=== PATIENT | male | born 1945 | race Caucasian/White ===

== ENCOUNTER 2019-10-13 08:44 | Inpatient (IN) | payer MEDICARE, OTHER, SELFPAY ==
[2019-10-13] VITALS (18 sets, daily range): BP systolic 138–187; BP diastolic 61–101; PULSE 75–100; RESP 16–20; TEMP 36.1–36.9; O2SAT 88–97; BMI 27.4
--- NOTE | ~2019-10-13 | CT_ITS ---
EXAMINATION: CTA chest PE protocol DATE: 10/13/2019 10:25 INDICATION: Shortness of breath. Leg swelling. TECHNIQUE: Computed tomography angiography (CTA) of the chest was performed with 100 mL Omnipaque-350 intravenous contrast timed to evaluate the pulmonary arteries. Coronal maximum intensity projection 3D-reconstructions were created by the technologist. Automated exposure control and iterative reconst ruction technique were employed. Exam dose: 387.79 mGy-cm total exam DLP. COMPARISON: 10/12/2021 view chest FINDINGS: There is diagnostic contrast enhancement of the pulmonary arteries and no evidence of pulmo nary embolism. There is atherosclerotic calcification of the thoracic aorta, coronary and great vessels. No thoracic aortic aneurysm or dissection. Heart size is within normal range. No pericardial or pleural effusion. No hilar or mediastinal mass lesion or lymphadenopathy. No adrenal mass lesion. Included upper abdominal structures are unremarkable other than some postoper ative change of the stomach. Diffuse idiopathic skeletal hyperostosis of the thoracic spine. Prominent emphysematous changes are noted. There is asymmetric mild patchy groundglass infiltrate in the left upper lobe, which may be due to sm all airways disease or minimal interstitial pneumonitis versus interstitial fibrotic change. Lesser p redominantly peripheral interstitial likely chronic changes are noted bilaterally. No pulmonary conso lidation. No pulmonary mass lesion is evident. IMPRESSION: No evidence of pulmonary embolism Emphysema Asymmetric mild groundglass infiltrate in the left upper lobe which may be due to small airways disea se, mild interstitial pneumonitis or asymmetric chronic interstitial fibrotic change; recommend clini james correlation Reviewed, dictated and finalized at [facility]. Reviewed, dictated and finalized at location [facility]. IMPRESSION: No evidence of pulmonary embolism Emphysema Asymmetric mild groundglass infiltrate in the left upper lobe which may be due to small airways disease, mild interstitial pneumonitis or asymmetric chronic i nterstitial fibrotic change; recommend clinical correlation
--- NOTE | ~2019-10-13 | XR_ITS ---
EXAMINATION: XR chest 1V portable EXAM DATE: 10/15/2019 10:08 INDICATION: Aspiration. Airspace disease. TECHNIQUE: Portable AP frontal chest x-ray was obtained. Comparison is made to prior examination from 10/13/2019. FINDINGS: Development of congestive changes, pulmonary vascular congestion. No confluent consolidatio n, pneumothorax or pleural effusion suspected. Cardiomediastinal silhouette is normal. There is no pn eumothorax suspected. There are no pleural effusions. There are mild bony degenerative changes. IMPRESSION: Development of pulmonary vascular congestion. Reviewed, dictated and finalized at location [facility].
--- NOTE | ~2019-10-13 | US_ITS ---
EXAMINATION: US venous doppler LE EXAM DATE: 10/13/2019 15:27 INDICATION: Bilateral leg edema. Respiratory problem. TECHNIQUE: Multiple grayscale, color flow and Doppler images of the lower extremity deep venous syste ms bilaterally were obtained and reviewed. There is no prior study for comparison. FINDINGS: Right side: The right common femoral, femoral and profunda veins demonstrate normal color flow, respi ratory variation, augmentation and compressibility. Compressibility, color flow confirmed within the right popliteal, posterior tibial, peroneal, and greater saphenous veins. Left side: The left common femoral, femoral and profunda veins demonstrate normal color flow, respira tory variation, augmentation and compressibility. Compressibility, color flow confirmed within the l eft popliteal, posterior tibial, peroneal, and greater saphenous veins. IMPRESSION: 1. No lower extremity deep venous thrombosis bilaterally. Reviewed, dictated and finalized at location A.
--- NOTE | ~2019-10-13 | XR_ITS ---
XR chest 2V DATE: 10/13/2019 09:06 INDICATION: Shortness of breath with exertion TECHNIQUE: PA and lateral views COMPARISON: 01/06/2017 two-view chest FINDINGS: There is bilateral hyperinflation suggesting chronic obstructive pulmonary disease. There is subtle ill-defined increased density overlying the left mid lung; left lung groundglass infi ltrate is not excluded. If further evaluation is indicated, consider CT thorax. No pleural effusion or pulmonary vascular congestion or pneumothorax. Cardiomegaly. Aortic calcification. Osteopenia. Degenerative spurring of the thoracic spine. Mild thoracolumbar dextroscoliosis. IMPRESSION: Cannot exclude groundglass infiltrate, left midlung. If more definitive evaluation is req uired, consider CT thorax. Bilateral hyperinflation suggesting COPD Cardiac megaly Aortic calcification Reviewed, dictated and finalized at location A. IMPRESSION: Cannot exclude groundglass infiltrate, left midlung. If more defini tive evaluation is required, consider CT thorax. Bilateral hyperinflation suggesting COPD Cardiac megaly Aortic calcification
--- NOTE | ~2019-10-13 | XR_ITS ---
EXAMINATION: XR chest 2V EXAM DATE: 10/16/2019 08:22 INDICATION: Aspiration. TECHNIQUE: Portable AP frontal chest x-ray was obtained. Comparison is made to prior examination from 10/15/2019. FINDINGS: There is worsening reticulation mostly on the left side in the mid and lower lung zones, co uld be worsening pneumonia or edema. No pneumothorax or pleural effusion. Cardiomediastinal silhouett e is normal. There are no osseous abnormalities identified. There is aortic arterial sclerosis. IMPRESSION: Worsening left mid lower lung zone reticulation, progression of pneumonia or edema. Reviewed, dictated and finalized at location B. IMPRESSION: Worsening left mid lower lung zone reticulation, progression of pne umonia or edema.
--- NOTE | 2019-10-13 08:49 | ECG_ITS ---
Measurements Intervals [place] Rate: 89 P: 78 NM: 134 QRS: 42 QRSD: 94 T: 32 QT: 373 QTc: 455 Interpretive Statements SINUS RHYTHM NORMAL ECG Electronically Signed On 10-13-2019 16:31:49 CDT by Vic Melendrez D.O.
--- NOTE | 2019-10-13 09:01 | ED.SOB ---
HPI - SOB/Dyspnea General Chief Complaint: Shortness of Breath/Dyspnea Stated Complaint: sob Time Seen by Provider: 10/13/19 09:01 Source: patient Mode of arrival: ambulatory Limitations: no limitations History of Present Illness HPI Narrative: A 74 y/o male, with a PMHx of COPD, presents to the ED with c/o increased SOB for a couple weeks. Pt states that he has been more SOB when going up and down stairs and when laying down to go to sleep. He reports BLE edema, but denies CP, a cough, congestion, fever, chills, and a PMHx of CHF. Pertinent past history: COPD Onset (ago): week(s) (couple) Associated symptoms: other (BLE edema) Related Data Home Medications Medication Instructions Recorded Confirmed aspirin 81 mg tablet,delayed 81 mg PO DAILY 06/20/19 release esomeprazole magnesium 20 mg 20 mg PO DAILY 06/20/19 capsule,delayed release calcium carbonate-vitamin D3 1 tablet PO DAILY 10/13/19 10/13/19 [Caltrate 600 plus D] doxazosin 4 mg PO DAILY 10/13/19 Allergies Allergy/AdvReac Type Severity Reaction Status Date / Time No Known Allergies Allergy Verified 10/13/19 08:51 Review of Systems Review of Systems: All systems reviewed & are unremarkable except as noted in HPI and below Constitutional: Constitutional: Denies chills and Denies fever(s) ENT: Comments: Denies: congestion Cardiovascular: Cardiovascular: Denies chest pain and Reports other (BLE edema) Respiratory: Respiratory: Denies cough and Reports dyspnea PMF Past Medical History Medical History (Updated 10/13/19 @ 15:37 by Carlos Barajas MD) Benign prostatic hyperplasia Bladder cancer Status post TURBT in 2015. Chronic back pain For which he takes gabapentin. COPD (chronic obstructive pulmonary disease) Former smoker 1.5 packs per day for 40 years, quit in 2006. GERD (gastroesophageal reflux disease) Osteoarthritis Peptic ulcer 1995. Prostate cancer Status post radiation in 2015. Surgical History Surgical History (Updated 10/13/19 @ 14:45 by Korin Osei PA-C) History of arthroscopic knee surgery History of bladder surgery TURBT in 2015. History of laparotomy Related to what sounds like peptic or duodenal ulcer, and 1995. Social History Social History (Updated 10/13/19 @ 14:46 by Korin Osei PA-C) Social History: The patient is and lives with his in [place]. 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 He designates his , Hannah, as his surrogate decision maker and he wishes to be a full code. He smokes 1.5 packs of cigarettes per day for about 45 years, and quit in 2006. He denies alcohol and drug abuse. Smoking packs per day: 1.5 Smoking cigarettes per day: 30.0 Years smoked: 45 Smoking pack-years: 67.50 Smoking end date: 02/23/07 Spiritual care concerns: No Agree to blood products: Yes Comments PCP: Dr. Miner Exam Narrative: Exam Narrative: Constitutional: elderly, mildly ill appearing, no acute distress, well nourished HENMT: lip normal, MM moist Eyes: conjunctiva normal, PERRL Respiratory: clear to auscultation bilaterally, diminished breath sounds bilaterally Cardiovascular: RRR, no murmur, 2+ pitting edema to BLE GI: soft, non-tender, normal bowel sounds Back/Spine/Pelvis: Full ROM Skin: normal color, dry skin, warm Neurological: A&Ox3, normal speech Extremities: full ROM Psych: mental status grossly normal, normal affect Course Consultations Consultation #1: Discussed case with Dr. Bae and accepted admission. Date: 10/13/19 Time: 10:48 Vital Signs Vital signs: Vital Signs Temperature 36.3 C L 10/13/19 08:48 Pulse Rate 100 10/13/19 08:48 Respiratory Rate 18 10/13/19 08:48 Blood Pressure 138/72 10/13/19 08:48 Pulse Oximetry 88 L 10/13/19 08:48 Temperature 36.9 C 10/13/19 14:51 Pulse Rate 90 10/13/19 14:51 Respiratory Rate 17 10/13/19 14:51 Blood Pressure 182/92 H 10/13/19 14:51 Pulse Oximetry 94 04
[2019-10-13 09:09] LABS: Basophils Absolute Auto 0.1 K/mm3 (0.0-0.1); Basophils Percent Auto 1.5 % (0.2-1.2); Eosinophils Absolute Auto 0.2 K/mm3 (0-0.3); Hematocrit 24.6 % (42.0-52.0); Immature Granulocyte Absolute 0.01 K/mm3 (0.00-0.031); Immature Granulocyte Percent A 0.3 % (0-0.5); Lymphocytes Absolute Auto 0.45 K/mm3 (0.9-3.2); Lymphocytes Percent Auto 11.3 % (18.3-44.2); Mean Corpuscular HGB Conc 24.4 g/dl (32-36); Mean Corpuscular Hemoglobin 15.4 pg (26-34); Mean Corpuscular Volume 63.2 fl (80-100); Monocytes Absolute Auto 0.4 K/mm3 (0.1-0.6); Neutrophils Absolute Auto 2.9 K/mm3 (1.3-6.7); Neutrophils Percent Auto 73.9 % (45.5-73.1); Platelet Count Result 195 k/mm3 (150-375); Red Blood Count 3.89 M/mm3 (4.6-6.20); Red Cell Distribution Width 21.2 % (11.5-14.5)
[2019-10-13 09:18] LABS: Platelet Estimate Adequate (Adequate)
[2019-10-13 09:19] LABS: Blood Urea Nitrogen 17 mg/dL (9-20); Calcium 8.8 mg/dL (8.4-10.2); Carbon Dioxide 26 mmol/L (22-30); Chloride 105 mmol/L (98-107); Estimated CRCL calculation 55 ml/min; Estimated Glomerular Filt Rate > 60; Glucose 94 mg/dL (75-110); Hypochromasia 2+ (NORMAL); Ovalocytes 1+ (NORMAL); Poikilocytosis 1+ (NORMAL); Sodium 138 mmol/L (137-145)
[2019-10-13 09:30] LABS: INR 1.1; Prothrombin Time 13.5 Seconds (11.1-14.7)
[2019-10-13 09:31] LABS: Partial Thromboplastin Time 28.1 SECONDS (22.3-36.8)
[2019-10-13 09:36] LABS: CRP 1.4 mg/dL (<1.0); Lactate Dehydrogenase 713 U/L (313-618)
[2019-10-13 09:45] LABS: NT Pro B Type Natriuretic Pept 1810 PG/ML (5-100); Troponin I < 0.012 ng/mL (0.000-0.034)
--- NOTE | 2019-10-13 09:48 | PC.NURSE ---
Blood consent obtained at this time.
--- NOTE | 2019-10-13 10:02 | PC.NURSE ---
Updated patients Jo at [phone] at this time.
[2019-10-13] MEDS: TUBING, BLOOD PLUM PUMP TUBING 1 EACH XX (10:44)
[2019-10-13] MEDS: SODIUM CHLORIDE 0.9% IV 250 ML 30 ML IV CONT (10:44)
[2019-10-13] MEDS: FUROSEMIDE INJ 40 MG/4 ML VIAL IV PUSH (11:52)
--- NOTE | 2019-10-13 12:10 | ADMGEN ---
This patient, Joe Mead, was admitted to Medical Room 243-. Patient/family oriented to hospital policies and general routines including ID bracelet, bed and alarms, visiting hours, pain management, procedures, bathroom and other care routines, personal items, smoking policy, room service/diet, and visiting hours. Valuables list has been completed. Information on how to activate the Rapid Response Team has been discussed. Patient/Family are encouraged to report perceived risks to care and to ask questions if they do not understand what they are told or what they should do.
--- NOTE | 2019-10-13 13:50 | PM.IMHP ---
H&P: HPI History of Present Illness Chief complaint: Shortness of breath. Narrative: Joe Mead is a very pleasant 74-year-old male with COPD, GERD with history of peptic ulcer, and history of both prostate and bladder cancer who presented to the emergency department earlier this morning via private vehicle from home for evaluation of shortness of breath. He has mild, chronic dyspnea on exertion, mainly when walking up flights of steps, which has been much worse over the past couple of days. Additionally, he reports bilateral lower extremity edema, mild orthopnea, and dizziness upon standing. He was found to be profoundly anemic on labs drawn upon arrival, with a hemoglobin and hematocrit of 6.0 and 24.6% respectively. MCV was noted to be 63.2. ?I have been told my whole life that I would have always been a little bit anemic.? A colonoscopy done in December [address] Williamson revealed colon polyps, proctitis, internal hemorrhoids, and diverticulosis. The patient denies melena and hematochezia. He does take esomeprazole daily, which keeps his GERD symptoms at bay. Due to low back pain, he will take an Aleve maybe 1 time per week. He does not drink alcohol in any significant amounts. He denies belching, abdominal, and epigastric discomfort. He has no history of coronary artery disease or congestive heart failure. No history of cardiac murmur to his knowledge. He denies exertional chest pain and pleuritic pain. No PND or history of sleep apnea. He denies cough and wheeze. Review of Systems Review of Systems: Narrative: Twelve systems were reviewed with pertinent positives and negatives as per HPI. No fever, chills, or sweats. He denies cold and flu symptoms. No cough or wheezing. He denies dysphagia and concerns for aspiration. No epistaxis, hematemesis, or hematuria. No history of venous thromboembolism. Denies recent travel. Except as documented, all other systems were reviewed and are negative. [facility] Past Medical History Medical History (Updated 10/13/19 @ 14:48 by Korin Osei PA-C) Benign prostatic hyperplasia Bladder cancer Status post TURBT in 2015. Chronic back pain For which he takes gabapentin. COPD (chronic obstructive pulmonary disease) Former smoker 1.5 packs per day for 40 years, quit in 2006. GERD (gastroesophageal reflux disease) Osteoarthritis Peptic ulcer 1995. Prostate cancer Status post radiation in 2015. Surgical History Surgical History (Updated 10/13/19 @ 14:45 by Korin Osei PA-C) History of arthroscopic knee surgery History of bladder surgery TURBT in 2015. History of laparotomy Related to what sounds like peptic or duodenal ulcer, and 1995. Family History Family History Mother History of blood clots Leukemia Sibling Prostate carcinoma Social History Social History (Updated 10/13/19 @ 14:46 by Korin Osei PA-C) Social History: The patient is and lives with his in [place]. 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 He designates his , Hannah, as his surrogate decision maker and he wishes to be a full code. He smokes 1.5 packs of cigarettes per day for about 45 years, and quit in 2006. He denies alcohol and drug abuse. Smoking packs per day: 1.5 Smoking cigarettes per day: 30.0 Years smoked: 45 Smoking pack-years: 67.50 Smoking end date: 02/23/07 Spiritual care concerns: No Agree to blood products: Yes Meds Home Medications and Allergies Home Medications Medication Instructions Recorded Confirmed Type aspirin 81 mg tablet,delayed 81 mg PO DAILY 06/20/19 History release esomeprazole magnesium 20 mg 20 mg PO DAILY 06/20/19 History capsule,delayed release tiotropium bromide 2.5 2 puff INHALATION DAILY #1 device 10/01/19 Rx mcg/actuation mist for inhalation calcium carbonate-vitamin D3 1 tablet PO DAILY 10/13/19 10/13/19 History [Caltrate 600 plus
[2019-10-13 15:05] LABS: Iron 34 ug/dL (49-181)
[2019-10-13 15:23] LABS: Percent Iron Saturation 8 % (20-50)
[2019-10-13 15:35] LABS: Ferritin 4.65 ng/mL (11.1-264)
[2019-10-13] MEDS: FUROSEMIDE INJ 40 MG/4 ML VIAL 20 MG IV PUSH (18:26)
[2019-10-13 20:12] LABS: Hematocrit 30.6 % (42.0-52.0); Hemoglobin 8.2 g/dL (14.0-18.0)
[2019-10-14] VITALS (10 sets, daily range): BP systolic 139–176; BP diastolic 81–90; PULSE 72–111; RESP 16–18; TEMP 36.1–36.5; O2SAT 90–96
[2019-10-14 01:34] LABS: IFOB Positive Control Positive; Immunochemical Fecal Occult Bl Positive (N)
[2019-10-14 05:23] LABS: Alanine Aminotransferase 34 U/L (4-50); Alkaline Phosphatase 175 U/L (38-126); Aspartate Amino Transferase 34 U/L (17-59); Bilirubin,Total 0.9 mg/dL (0.2-1.3); Blood Urea Nitrogen 15 mg/dL (9-20); Calcium 9.2 mg/dL (8.4-10.2); Carbon Dioxide 32 mmol/L (22-30); Chloride 100 mmol/L (98-107); Estimated CRCL calculation 47 ml/min; Estimated Glomerular Filt Rate 59; Glucose 93 mg/dL (75-110); Magnesium 1.9 mg/dL (1.6-2.3); Potassium 3.2 mmol/L (3.4-5.0); Sodium 138 mmol/L (137-145)
[2019-10-14 08:14] LABS: Hematocrit 32.4 % (42.0-52.0); Hemoglobin 8.8 g/dL (14.0-18.0); Immature Platelet Fraction Pct 4.7 % (0.9-11.2); Mean Corpuscular HGB Conc 27.2 g/dl (32-36); Mean Corpuscular Hemoglobin 18.1 pg (26-34); Mean Corpuscular Volume 66.7 fl (80-100); Mean Platelet Volume 9.4 fl (7.4-10.4); Platelet Count Result 216 k/mm3 (150-375); Red Blood Count 4.86 M/mm3 (4.6-6.20); Red Cell Distribution Width 25.8 % (11.5-14.5); White Blood Count 4.9 K/mm3 (4.5-10.0)
[2019-10-14] MEDS: POTASSIUM CHLORIDE 20 MEQ PACKET (FOR LIQUID) 40 MEQ PO (08:43)
[2019-10-14] MEDS: PANTOPRAZOLE 40 MG TABLET PO ×2 (08:43→21:14)
[2019-10-14] MEDS: DOXAZOSIN MESYLATE 4 MG TABLET PO (08:44)
--- NOTE | 2019-10-14 09:58 | PM.IMPN ---
Progress Note: A&P Assessment and Plan (1) Microcytic anemia: Code(s): D50.9 - Iron deficiency anemia, unspecified Status: Acute Assessment and Plan: Chronic GI blood loss DDx includes PUD, UGI neoplasm, small bowel neoplasm, angiodysplasia of UGI stomach or small bowel, worsened proctitis 10/13 Hbg 6.0, 2 U PRBC --> 8.2 GI consult f/u h/h (2) Elevated blood pressure reading: Code(s): R03.0 - Elevated blood-pressure reading, without diagnosis of hypertension Status: Acute Assessment and Plan: 10/13 Improved with diuresis to 139/81 4 D/c furosemide Monitor volume status (3) Cardiac murmur: Code(s): R01.1 - Cardiac murmur, unspecified Status: Acute Assessment and Plan: Was likely due to high flow state caused by anemia (4) GERD (gastroesophageal reflux disease): Qualifiers: Esophagitis presence: esophagitis presence not specified Qualified Code(s): K21.9 - Gastro-esophageal reflux disease without esophagitis Code(s): K21.9 - Gastro-esophageal reflux disease without esophagitis Status: Acute Assessment and Plan: He has a remote history of peptic ulcers requiring surgical intervention in 1995. No active complaints Continue PPI BID (5) COPD (chronic obstructive pulmonary disease): Qualifiers: COPD type: unspecified COPD Qualified Code(s): J44.9 - Chronic obstructive pulmonary disease, unspecified Code(s): J44.9 - Chronic obstructive pulmonary disease, unspecified Status: Acute Assessment and Plan: No acute issues. Continue maintenance inhalers. Subjective Date/time seen: 10/14/19 09:58 Interval history: 74-year-old gentleman with history of peptic ulcer disease and radiation proctitis was admitted with dyspnea on 10/12. Also had edema and orthopnea. Treated with IV Lasix. Given 2 units of packed cells for hemoglobin of 6. Denied gastrointestinal symptoms except chronic heartburn controlled on omeprazole. No change in stools. / swelling in legs more much less. Able to lie flat. No chest pain or palpitations. No GI or complaints. Review of Systems Review of Systems: All systems reviewed & are unremarkable except as noted in HPI and below Exam Narrative: Exam Narrative: HEENT: EOMI, PERRL, pharyngeal mucosa pink and intact NECK: No JVD CHEST: Clear to auscultation. Normal effort. HEART: NL S1/S2, regular, no murmur ABDOMEN: BS+, soft, nontender, no mass, no bruits EXTREMITIES: trace ankle edema NEUROLOGIC: CN intact and symmetric to inspection. MUSCULOSKELETAL: Tone and strength symmetric. PSYCH: Alert. Oriented to person, place, and time. Objective Data Vital Signs Vital Signs: Vital Signs - 24 hr 10/13/19 10:39 10/13/19 10:47 10/13/19 10:56 Temperature 98 F 98.1 F Pulse Rate 89 90 86 Respiratory Rate 18 18 18 Blood Pressure 167/86 H 166/87 H 178/95 H Pulse Oximetry 94 93 92 10/13/19 11:47 10/13/19 11:56 10/13/19 12:56 Temperature 97.9 F 97.6 F Pulse Rate 89 99 87 Respiratory Rate 20 18 16 Blood Pressure 160/61 H 160/84 H 173/87 H Pulse Oximetry 95 95 95 10/13/19 13:36 10/13/19 13:51 10/13/19 14:51 Temperature 97.1 F L 97 F L 98.4 F Pulse Rate 85 90 90 Respiratory Rate 16 16 17 Blood Pressure 182/85 H 171/92 H 182/92 H Pulse Oximetry 97 93 94 10/13/19 15:51 10/13/19 16:00 10/13/19 16:51 Temperature 97.9 F 97.7 F Pulse Rate 80 75 94 Respiratory Rate 16 18 Blood Pressure 150/88 H 187/95 H Pulse Oximetry 89 L 92 10/13/19 18:10 10/13/19 20:00 10/13/19 21:40 Temperature 97.9 F 97.6 F Pulse Rate 92 88 94 Respiratory Rate 17 16 Blood Pressure 160/76 H 141/73 H Pulse Oximetry 93 94 10/14/19 00:00 10/14/19 01:34 10/14/19 04:00 Temperature 97.7 F Pulse Rate 85 72 95 Respiratory Rate 18 Blood Pressure 172/81 H Pulse Oximetry 93 10/14/19 05:46 Temperature 96.9 F L Pulse Rate 90 R
--- NOTE | 2019-10-14 11:25 | WPDGICN ---
Assessment and Plan Additional Plan Microcytic hyperchromic anemia secondary to chronic occult blood loss. Obviously this could be an upper GI tract, small bowel source or colonic source. Patient could have a marginal ulcer. Patient certainly may be bleeding from radiation proctitis as well. I discussed gastroscopy and colonoscopy with this patient he wanted received both tests. I think would be safer to perform this as an inpatient tomorrow. Even though the patient did have a colonoscopy year ago I am concerned that he may need radiation proctitis treated as well. If there is no significant source of blood loss then an outpatient small bowel video capsule endoscopy could be performed. I discussed the risks with the patient including further bleeding perforation possible need for emergency surgery and side effects from sedation. GI Consult Note Consult date/time: 10/14/19 11:25 HPI: Joe Mead is a 74 year old W male Who we are asked to see in GI consultation for evaluation of severe iron deficiency anemia. Hemoglobin was 6.0 gm's. no overt evidence of bleeding. Patient of heme-positive stool this disc occult chronic blood loss. Patient underwent a colonoscopy by Dr. Williamson in December of last year. He had several benign polyps which were removed. He was also found to have diverticulosis internal hemorrhoids and nonspecific proctitis which I suspect most likely is related to radiation proctitis. Pertinent past medical history includes partial gastrectomy approximately 1995 for peptic ulcer disease. Patient has not had an upper endoscopy since this time. Again he has no upper GI tract symptoms except for some chronic heartburn which is controlled with Prilosec. He denies any dysphagia anorexia nausea vomiting hematemesis melena or weight loss. He has had no change in bowel pattern. He denies any hematochezia. Patient also history of bladder cancer which was treated via cystoscopy. Also prostate cancer these are both in 2016 any did have radiation therapy For his prostate cancer. Patient also history of COPD and stop smoking approximately 12 years ago. Patient also with previous vasectomy. Patient had an incisional hernia repaired. He has a peripheral neuropathy for which she takes gabapentin. Patient presented emergency room because of increasing shortness of breath and some peripheral edema most likely is related to his severe anemia. Patient has had 2 units of packed cells his hemoglobin 8.8 this morning and is receiving his 3rd unit. [facility] Past Medical History Medical History (Updated 10/13/19 @ 15:37 by Carlos Barajas MD) Benign prostatic hyperplasia Bladder cancer Status post TURBT in 2015. Chronic back pain For which he takes gabapentin. COPD (chronic obstructive pulmonary disease) Former smoker 1.5 packs per day for 40 years, quit in 2006. GERD (gastroesophageal reflux disease) Osteoarthritis Peptic ulcer 1995. Prostate cancer Status post radiation in 2015. Surgical History Surgical History (Updated 10/13/19 @ 14:45 by Korin Osei PA-C) History of arthroscopic knee surgery History of bladder surgery TURBT in 2015. History of laparotomy Related to what sounds like peptic or duodenal ulcer, and 1995. Family History Family History Mother History of blood clots Leukemia Sibling Prostate carcinoma Social History Social History (Updated 10/13/19 @ 14:46 by Korin Osei PA-C) Social History: The patient is and lives with his in [place]. 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 He designates his , Hannah, as his surrogate decision maker and he wishes to be a full code. He smokes 1.5 packs of cigarettes per day for about 45 years, and quit in 2006. He denies alcohol and drug abuse. Smoking packs per day: 1.5 Smoking cigarettes per day: 30.0 Years smoked: 45 Smoking pack-years: 67.50 [place]gardo
[2019-10-14 13:03] LABS: Hemoglobin 9.2 g/dL (14.0-18.0)
[2019-10-14 13:14] LABS: Blood Urea Nitrogen 14 mg/dL (9-20); Calcium 9.1 mg/dL (8.4-10.2); Carbon Dioxide 29 mmol/L (22-30); Chloride 101 mmol/L (98-107); Estimated CRCL calculation 55 ml/min; Estimated Glomerular Filt Rate > 60; Glucose 92 mg/dL (75-110); Potassium 3.6 mmol/L (3.4-5.0); Sodium 138 mmol/L (137-145)
--- NOTE | 2019-10-14 14:54 | ECHO_ITS ---
Patient Info Name: Joe Mead Age: 74 years : 1945 Gender: Male Ht: 68 in Wt: 169 lbs BSA: 1.93 m2 HR: 90 bpm BP: 176 / 90 mmHg Heart Rhythm: Sinus Rhythm Technical Quality: Good Exam Date: 10/14/2019 9:22 AM Exam Location: [facility] Pulmonary Exam Room: 243 Patient Status: Inpatient Admit Date: 10/13/2019 Staff Ordering Physician: Korin Osei PA-C [employer] Manager: Alysia Adams RDCS Attending Provider: Scar Bae MD Referring Physician: Farnaz WHELAN; Exam Type: CA echo doppler color flow Study Info Indications - systolic murmur edema Complete two-dimensional, color flow and Doppler transthoracic echocardiogram is performed. Summary 1. Left ventricular chamber dimension is normal. 2. Left ventricular systolic function is normal, estimated at 60-65%. 3. The left ventricular diastolic function is grade I diastolic dysfunction. 4. E/e' 8 is minimally elevated. 5. Left atrial chamber dimension is moderately enlarged. 6. Right atrial chamber dimension is moderately enlarged. 7. There is mild aortic valve sclerosis. 8. The mitral valve has mildly thickened leaflets and mildly calcified annulus. 9. There is mild mitral valve regurgitation. 10. There is moderate tricuspid valve regurgitation. 11. Severe pulmonary hypertension, estimated pulmonary arterial systolic pressure is 82 mmHg. 12. Small atheroma in anterior and posterior aortic root. 13. Dilated inferior vena cava with >50% collapse upon inspiration consistent with elevated right atrial pressure, 10 mmHg. Left Ventricle E/e' 8 is minimally elevated. Left ventricular chamber dimension is normal. Left ventricular systolic function is normal, estimated at 60-65%. The left ventricular diastolic function is grade I diastolic dysfunction. Right Ventricle Moderator band which is normal variant. Right ventricular chamber dimension is normal. Right ventricular systolic function is normal. Left Atria Left atrial chamber dimension is moderately enlarged. Right Atria Right atrial chamber dimension is moderately enlarged. Aortic Valve The aortic valve is trileaflet. There is mild aortic valve sclerosis. There is no aortic valve stenosis. There is no aortic valve regurgitation. Pulmonic Valve There is no pulmonic regurgitation. Mitral Valve The mitral valve has mildly thickened leaflets and mildly calcified annulus. There is no mitral valve stenosis. There is mild mitral valve regurgitation. Tricuspid Valve There is moderate tricuspid valve regurgitation. Severe pulmonary hypertension, estimated pulmonary arterial systolic pressure is 82 mmHg. Pericardium/Pleural There is no pericardial effusion. Inferior Vena Cava Dilated inferior vena cava with >50% collapse upon inspiration consistent with elevated right atrial pressure, 10 mmHg. Aorta Small atheroma in anterior and posterior aortic root. The aortic root size at the sinus of Valsalva is normal. Left Ventricular Outflow Tract Name Value Normal LVOT 2D LVOT Diameter 2.0 cm LVOT Doppler LVOT Peak Gradient 6 mmHg
[2019-10-14] MEDS: polyethylene glycoL 3350 238 GM BOTTLE PO (15:05)
[2019-10-14] MEDS: MELATONIN 5 MG TABLET PO (21:14)
[2019-10-15] VITALS (24 sets, daily range): BP systolic 104–171; BP diastolic 57–95; PULSE 80–109; RESP 15–22; TEMP 36.2–37.3; O2SAT 88–96
[2019-10-15 05:21] LABS: Hematocrit 33.8 % (42.0-52.0); Hemoglobin 9.1 g/dL (14.0-18.0); Immature Platelet Fraction Pct 5.8 % (0.9-11.2); Mean Corpuscular HGB Conc 26.9 g/dl (32-36); Mean Corpuscular Hemoglobin 18.2 pg (26-34); Mean Corpuscular Volume 67.5 fl (80-100); Platelet Count Result 204 k/mm3 (150-375); Red Blood Count 5.01 M/mm3 (4.6-6.20); White Blood Count 4.7 K/mm3 (4.5-10.0)
[2019-10-15 05:36] LABS: Blood Urea Nitrogen 10 mg/dL (9-20); Calcium 9.2 mg/dL (8.4-10.2); Carbon Dioxide 29 mmol/L (22-30); Chloride 103 mmol/L (98-107); Estimated CRCL calculation 55 ml/min; Estimated Glomerular Filt Rate > 60; Glucose 91 mg/dL (75-110); Potassium 3.2 mmol/L (3.4-5.0); Sodium 140 mmol/L (137-145)
[2019-10-15] MEDS: LACTATED RINGERS 1,000 ML 150 ML IV CONT (08:18)
--- NOTE | 2019-10-15 08:22 | SUR.PREOP ---
0825 patient stating 91 on room air with no distress noted 02 applied at 2L nasal cannula
--- NOTE | 2019-10-15 08:39 | WPDANESEPPF ---
Anes - Initial Pre Proc Eval Procedure: Operation Date: 10/15/19 09:30 Proposed Procedures p Esophagogastroduodenoscopy & Colonoscopy - Dejan Williamson MD Date/Time: 10/15/19 08:39 Surgeon: Oscar Bae MD Pre Op Diagnosis: Shortness of breath. Patient Data Age: 74 Gender: M Height: 5 ft 8 in Weight: 82 kg Last Vital Signs Temp 37.0 C 10/15/19 08:20 Pulse 83 10/15/19 08:20 Resp 18 10/15/19 08:20 BP 171/86 H 10/15/19 08:20 Pulse Ox 91 10/15/19 08:20 Allergies Allergy/AdvReac Type Severity Reaction Status Date / Time No Known Allergies Allergy Verified 10/15/19 08:19 Home Medications Medication Instructions Recorded Confirmed Type aspirin 81 mg tablet,delayed 81 mg PO DAILY 06/20/19 10/13/19 History release esomeprazole magnesium 20 mg 20 mg PO DAILY 06/20/19 10/13/19 History capsule,delayed release tiotropium bromide 2.5 2 puff INHALATION DAILY #1 device 10/01/19 10/13/19 Rx mcg/actuation mist for inhalation calcium carbonate-vitamin D3 1 tablet PO DAILY 10/13/19 10/13/19 History [Caltrate 600 plus D] doxazosin 4 mg PO DAILY 10/13/19 10/13/19 History Laboratory Tests 10/14/19 10/14/19 10/15/19 12:26 12:26 04:48 WBC 4.7 K/mm3 K/mm3 (4.5-10.0) RBC 5.01 M/mm3 M/mm3 (4.6-6.20) Hgb 9.2 g/dL L g/dL 9.1 g/dL L g/dL (14.0-18.0) (14.0-18.0) Hct 34.0 % L % 33.8 % L % (42.0-52.0) (42.0-52.0) MCV 67.5 fl L fl (80-100) MCH 18.2 pg L pg (26-34) MCHC 26.9 g/dl L g/dl (32-36) RDW 26.0 % H % (11.5-14.5) Plt Count 204 k/mm3 k/mm3 (150-375) MPV TNP % Immature Plt Fraction 5.8 % % (0.9-11.2) Sodium 138 mmol/L mmol/L (137-145) Potassium 3.6 mmol/L mmol/L (3.4-5.0) Chloride 101 mmol/L mmol/L (98-107) Carbon Dioxide 29 mmol/L mmol/L (22-30) BUN 14 mg/dL mg/dL (9-20) Creatinine 1.00 mg/dL mg/dL (0.7-1.3) Estim Creat Clear Calc 55 ml/min ml/min Estimated GFR > 60 (59 - ) Glucose 92 mg/dL mg/dL (75-110) Calcium 9.1 mg/dL mg/dL (8.4-10.2) 10/15/19 04:48 WBC RBC Hgb Hct MCV MCH MCHC RDW Plt Count MPV % Immature Plt Fraction Sodium 140 mmol/L mmol/L (137-145) Potassium 3.2 mmol/L L mmol/L (3.4-5.0) Chloride 103 mmol/L mmol/L (98-107) Carbon Dioxide 29 mmol/L mmol/L (22-30) BUN 10 mg/dL mg/dL (9-20) Creatinine 1.00 mg/dL mg/dL (0.7-1.3) Estim Creat Clear Calc 55 ml/min ml/min Estimated GFR > 60 (59 - ) Glucose 91 mg/dL mg/dL (75-110) Calcium 9.2 mg/dL mg/dL (8.4-10.2) Patient hx anesthesia problems: none Family hx anesthesia problems: none [facility] Past Medical History Medical History Benign prostatic hyperplasia Bladder cancer Status post TURBT in 2016. Chronic back pain For which he takes gabapentin. COPD (chronic obstructive pulmonary disease) Former smoker 1.5 packs per day for 40 years, quit in 2006. GERD (gastroesophageal reflux disease) Osteoarthritis Peptic ulcer 1995. Prostate cancer Status post radiation in 2016. Surgical History Surgical History History of arthroscopic knee surgery History of bladder surgery TURBT in 2016. History of laparotomy Related to what sounds like peptic or duodenal ulcer, and 1995. Family History Family History Mother History of blood clots Leukemia Sibling Prostate carcinoma Social History Social History Social History: The patient is and lives with his in [place]. He is a retired milk ma
--- NOTE | 2019-10-15 10:08 | SUR.PHASEII ---
0950 PATIENT RESTLESS IN BED, O2 STATS IN THE 80'S WITH NASAL CANNULA. CHELSI SERRANO LINE ERECTOR AT BEDSIDE, MASK AT O2 10 L APPLIED, PATIENT COUGHING, DIMINISHED BREATH SOUNDS. x-RAY CALLED FOR PORTABLE CHEST X-RAY, DR. HUERTAS CALLED ORDERS RECIEVED FOR BREATHING TX AND INSENTIVE SPIROMETRY. RESPIRATORY CALLED FOR STAT BREATHING TREATMENT. 1001 X-RAY HER FOR PORTABLE, PATIENT COUGHING AND YANKAUER SUCTION GIVEN TO PATIENT TO SUCK UP SECRETIONS HE IS COUGHING UP. SECTRETIONS ARE YELLOW BILE LOOKING. HOB IS ELEVATED AT 60 DEGREES APPROXIMATLY ENCOURAGED PATIENT TO DEEP BREATH AND TRY AND COUGH SECTRETIONS UP.
[2019-10-15] MEDS: ALBUTEROL SULFATE NEB 2.5 MG/3 ML INH 1.25 MG INHALATION (10:20)
--- NOTE | 2019-10-15 10:36 | SUR.PHASEII ---
1025 BREATHING TREATMENT COMPLETED O2 SWITCHED OVER TO NASAL CANNULA AT 4 LITERS, POSTERIOR LUNGS SOUNDS REMAIN DIMISHED WITH EXPIRATORY WHEEZES NOTED IN THE LEFT LOWER LOBES, AND RIGHT MIDDLE AND UPPER LOBE. PATIENT CONTINUES TO COUGH AND USING YANKUAER SUCTION TO MOUTH HE COUGHS SECRETIONS UP. 1035 O2 STATS BACK IN THE MID 80'S MASK REAPPLIED WITH 8L OF O2, 1040 NOW STATING 92
--- NOTE | 2019-10-15 10:51 | SUR.PHASEII ---
1050 DR HUERTAS HERE TO SEE PATIENT. O2 ON NC AT 4 L , DR. HUERTAS STATED TO BRING PATIENT TO THE FLOOR PULSE OX AT 92%
--- NOTE | 2019-10-15 10:58 | SUR.PHASEII ---
1055 AWAITING TO GIVE REPORT TO FLOOR NURSE. PATIENT STATS DROPPED TO MID 80'S MASK REEAPPLIED AT 6 L. dR. HUERTAS CALLED. ORDERS RECIEVED TO BRING PATIENT TO THE FLOOR ON MASK WITH RESPIRATORY PRECAUTIONS.
[2019-10-15] MEDS: DOXAZOSIN MESYLATE 4 MG TABLET PO (11:41)
[2019-10-15] MEDS: PANTOPRAZOLE 40 MG TABLET PO ×2 (11:41→20:47)
[2019-10-15] MEDS: ALBUTEROL SULFATE NEB 2.5 MG/0.5 ML INH 5 MG INHALATION ×2 (12:47→20:01)
--- NOTE | 2019-10-15 14:29 | PM.IMPN ---
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 10/13 Hbg 6.0, 2 U PRBC --> 9.1 today 10/14 f/u h/h, and IV iron again today (2) Elevated blood pressure reading: Code(s): R03.0 - Elevated blood-pressure reading, without diagnosis of hypertension Status: Acute Assessment and Plan: 10/13 Improved with diuresis to 139/81 4 D/c furosemide May need long-term antihypertensive continue to monitor (3) Cardiac murmur: Code(s): R01.1 - Cardiac murmur, unspecified Status: Acute Assessment and Plan: Was likely due to high flow state caused by anemia, resolved (4) GERD (gastroesophageal reflux disease): Qualifiers: Esophagitis presence: esophagitis presence not specified Qualified Code(s): K21.9 - Gastro-esophageal reflux disease without esophagitis Code(s): K21.9 - Gastro-esophageal reflux disease without esophagitis Status: Acute Assessment and Plan: He has a remote history of peptic ulcers requiring surgical intervention in 1995. 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 Continue maintenance inhalers. (6) Acute respiratory failure with hypoxia: Code(s): J96.01 - Acute respiratory failure with hypoxia Status: Acute Assessment and Plan: Requiring O2 to keep sats in the 90s. Continue [facility] antibiotics and monitor (7) Pneumonia, aspiration: Code(s): J69.0 - Pneumonitis due to inhalation of food and vomit Status: Acute Assessment and Plan: Occurred in GI lab. Chest x-ray somewhat diffuse type infiltrates. Continue updrafts and started Zosyn. Repeat chest x-ray in a.m. Subjective Date/time seen: 10/15/19 14:29 Interval history: Date of visit 10/14. 74-year-old gentleman with history of peptic ulcer disease and radiation proctitis was admitted with dyspnea on 10/12. Also had edema and orthopnea. Treated with IV Lasix. Given 2 units of packed cells for hemoglobin of 6. Denied gastrointestinal symptoms except chronic heartburn controlled on omeprazole. No change in stools. No shortness of breath. No chest pain or palpitations. No GI or complaints. Had EGD and colon this a.m. and apparently some aspiration with EGD Exam Narrative: Exam Narrative: Blood pressure 152/84 pulse is 86 saturating 92% but on 4 L afebrile HEENT:, PERRL, NECK: No JVD CHEST: Clear to auscultation. Normal effort. HEART: NL S1/S2, regular, no murmur ABDOMEN: BS+, soft, nontender, no mass, EXTREMITIES: Edema has gone NEUROLOGIC: CN intact and symmetric to inspection. . PSYCH: Alert. Oriented to person, place, and time. Objective Data Vital Signs Vital Signs: Vital Signs - 24 hr 10/14/19 16:00 10/14/19 20:00 10/14/19 22:00 Temperature 36.4 C Pulse Rate 103 H 94 88 Respiratory Rate 18 Blood Pressure 158/87 H Pulse Oximetry 90 10/15/19 00:00 10/15/19 04:00 10/15/19 05:55 Temperature 36.2 C L Pulse Rate 97 109 H 96 Respiratory Rate 20 Blood Pressure 150/70 H Pulse Oximetry 90 10/15/19 08:00 10/15/19 08:20 10/15/19 10:00 Temperature 37.0 C Pulse Rate 99 83 80 Respiratory Rate 18 22 H Blood Pressure 171/86 H 136/91 H Pulse Oximetry 91 88 L 10/15/19 10:10 10/15/19 10:20 10/15/19 10:30
[2019-10-15] MEDS: MELATONIN 5 MG TABLET PO (20:47)
[2019-10-16] VITALS (20 sets, daily range): BP systolic 106–121; BP diastolic 54–61; PULSE 80–104; RESP 18–20; TEMP 36.5–37.7; O2SAT 93–99
[2019-10-16] MEDS: ALBUTEROL SULFATE NEB 2.5 MG/0.5 ML INH 5 MG INHALATION ×4 (02:35→20:03)
[2019-10-16 06:01] LABS: Basophils Absolute Auto 0.1 K/mm3 (0.0-0.1); Basophils Percent Auto 0.5 % (0.2-1.2); Eosinophils Absolute Auto 0.1 K/mm3 (0-0.3); Eosinophils Percent Auto 0.3 % (0-4.4); Hematocrit 29.4 % (42.0-52.0); Hemoglobin 7.9 g/dL (14.0-18.0); Immature Granulocyte Absolute 0.08 K/mm3 (0.00-0.031); Immature Granulocyte Percent A 0.5 % (0-0.5); Immature Platelet Fraction Pct 6.7 % (0.9-11.2); Lymphocytes Absolute Auto 0.47 K/mm3 (0.9-3.2); Mean Corpuscular HGB Conc 26.9 g/dl (32-36); Mean Corpuscular Hemoglobin 18.3 pg (26-34); Mean Corpuscular Volume 68.2 fl (80-100); Monocytes Absolute Auto 0.8 K/mm3 (0.1-0.6); Monocytes Percent Auto 5.2 % (2.6-8.5); Neutrophils Absolute Auto 13.9 K/mm3 (1.3-6.7); Neutrophils Percent Auto 90.5 % (45.5-73.1); Nucleated Red Blood Cells Perc 0.2 % (0.0-0.2); Platelet Count Result 180 k/mm3 (150-375); Red Blood Count 4.31 M/mm3 (4.6-6.20); Red Cell Distribution Width 26.7 % (11.5-14.5); White Blood Count 15.4 K/mm3 (4.5-10.0)
[2019-10-16 06:19] LABS: Blood Urea Nitrogen 11 mg/dL (9-20); Carbon Dioxide 29 mmol/L (22-30); Chloride 104 mmol/L (98-107); Estimated CRCL calculation 55 ml/min; Estimated Glomerular Filt Rate > 60; Glucose 112 mg/dL (75-110); Sodium 138 mmol/L (137-145)
[2019-10-16 06:32] LABS: Anisocytosis 1+ (NORMAL); Hypochromasia 1+ (NORMAL); Platelet Estimate Adequate (Adequate)
[2019-10-16] MEDS: DOXAZOSIN MESYLATE 4 MG TABLET PO (07:46)
[2019-10-16] MEDS: PANTOPRAZOLE 40 MG TABLET PO ×2 (07:46→20:38)
[2019-10-16] MEDS: POTASSIUM CHLORIDE 20 MEQ TABLET 40 MEQ PO ×3 (07:46→17:30)
--- NOTE | 2019-10-16 09:43 | WPDANESPN ---
Anes - Prog Note Post-Op Date/Time: 10/16/19 09:43 Cardiovascular status: normal Respiratory status: normal Airway patency: baseline Mental status: baseline Post-Op hydration status: normal Vital Signs: Last Vital Signs Temp 37.7 C H 10/16/19 05:59 Pulse 87 10/16/19 09:34 Resp 18 10/16/19 09:34 BP 106/61 10/16/19 05:59 Pulse Ox 94 10/16/19 09:28 I/O: Intake & Output 10/15/19 10/16/19 10/16/19 23:59 07:59 15:59 Intake Total 1140 440 360 Output Total 800 500 Balance 340 -60 360 Laboratory Tests 10/16/19 04:49 10/16/19 04:49 10/16/19 10/16/19 04:49 04:49 WBC 15.4 H RBC 4.31 L Hgb 7.9 L Hct 29.4 L MCV 68.2 L MCH 18.3 L MCHC 26.9 L RDW 26.7 H Plt Count 180 MPV TNP Immature Gran % (Auto) 0.5 Neut % (Auto) 90.5 H Lymph % (Auto) 3.0 L Crowley % (Auto) 5.2 Eos % (Auto) 0.3 Baso % (Auto) 0.5 Lymph # (Auto) 0.47 L Crowley # (Auto) 0.8 H Eos # (Auto) 0.1 Baso # (Auto) 0.1 Abs Immat Gran (auto) 0.08 H Absolute Neuts (auto) 13.9 H Absolute Nucleated RBC 0.0 Nucleated RBC % 0.2 Platelet Estimate Adequate % Immature Plt Fraction 6.7 Hypochromasia 1+ Anisocytosis 1+ Sodium 138 Potassium 3.0 L Chloride 104 Carbon Dioxide 29 BUN 11 Creatinine 1.00 Estim Creat Clear Calc 55 Estimated GFR > 60 Glucose 112 H Calcium 8.0 L Post-procedural complaints: none Patient Feedback: Patient satisfied with anesthetic care.
--- NOTE | 2019-10-16 11:58 | PM.IMPN ---
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 10/13 Hbg 6.0, 2 U PRBC -->7.6 today 10/15 f/u h/h, and IV iron again today(total of 900 mg) (2) Elevated blood pressure reading: Code(s): R03.0 - Elevated blood-pressure reading, without diagnosis of hypertension Status: Acute Assessment and Plan: 10/13 Improved with diuresis to 139/81 10/13 D/c furosemide Moniter bp (3) Cardiac murmur: Code(s): R01.1 - Cardiac murmur, unspecified Status: Acute Assessment and Plan: Was likely due to high flow state caused by anemia,, resolved (4) GERD (gastroesophageal reflux disease): Qualifiers: Esophagitis presence: esophagitis presence not specified Qualified Code(s): K21.9 - Gastro-esophageal reflux disease without esophagitis Code(s): K21.9 - Gastro-esophageal reflux disease without esophagitis Status: Acute Assessment and Plan: He has a remote history of peptic ulcers requiring surgical intervention in 1995. 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 Continue maintenance inhalers. (6) Acute respiratory failure with hypoxia: Code(s): J96.01 - Acute respiratory failure with hypoxia Status: Acute Assessment and Plan: Requiring O2 to keep sats in the 90s. Continue updrafts antibiotics and monitor secondary to pna , aspiration (7) Pneumonia, aspiration: Code(s): J69.0 - Pneumonitis due to inhalation of food and vomit Status: Acute Assessment and Plan: Occurred in GI lab. Chest x-ray somewhat diffuse type infiltrates 10/14 but definite LLL infiltrate today. Continue updrafts and D#2 of [place]. Subjective Date/time seen: 10/16/19 11:58 Interval history: Date of visit 10/15. 74-year-old gentleman with history of peptic ulcer disease and radiation proctitis was admitted with dyspnea on 10/12. Also had edema and orthopnea. Treated with IV Lasix. Given 2 units of packed cells for hemoglobin of 6. Denied gastrointestinal symptoms except chronic heartburn controlled on omeprazole. No change in stools. No shortness of breath. No chest pain or palpitations. No GI or complaints. Had EGD and colon 10/14. and some aspiration with EGD Exam Narrative: Exam Narrative: Blood pressure 106/60 pulse is 72 saturating 92% but on 4 L , temp 37.7 HEENT:, PERRL, NECK: No JVD CHEST: faint crackle L post base. . HEART: NL S1/S2, regular, no murmur ABDOMEN: BS+, soft, nontender, no mass, EXTREMITIES: no Edema NEUROLOGIC: no focal deficits. PSYCH: Alert. affect appropriate Objective Data Vital Signs Vital Signs: Vital Signs - 24 hr 10/15/19 12:25 10/15/19 12:47 10/15/19 12:55 Temperature Pulse Rate 83 Respiratory Rate 20 Blood Pressure Pulse Oximetry 96 93 10/15/19 13:00 10/15/19 14:00 10/15/19 15:51 Temperature 36.9 C Pulse Rate 86 108 H Respiratory Rate 20 18 18 Blood Pressure 104/58 L Pulse Oximetry 92 91 10/15/19 16:00 10/15/19 20:00 10/15/19 20:03 Temperature Pulse Rate 102 H 92 97 Respiratory Rate 20 20 Blood Pressure Pulse Oximetry 95 10/15/19 20:07 10/15/19 20:10 10/15/19 22:00 Temperature 37.3 C Pulse Rate 97 92 97 Respiratory Rate 20 20 20 Blood Pressure 114/57
[2019-10-16] MEDS: MELATONIN 5 MG TABLET PO (20:38)
[2019-10-17] VITALS (17 sets, daily range): BP systolic 117–153; BP diastolic 56–75; PULSE 81–104; RESP 16–20; TEMP 36.2–36.4; O2SAT 90–94
[2019-10-17] MEDS: ALBUTEROL SULFATE NEB 2.5 MG/0.5 ML INH 5 MG INHALATION ×4 (01:53→20:05)
[2019-10-17 05:13] LABS: Basophils Absolute Auto 0.1 K/mm3 (0.0-0.1); Basophils Percent Auto 0.6 % (0.2-1.2); Eosinophils Absolute Auto 0.4 K/mm3 (0-0.3); Eosinophils Percent Auto 4.5 % (0-4.4); Hematocrit 30.5 % (42.0-52.0); Immature Granulocyte Absolute 0.05 K/mm3 (0.00-0.031); Immature Granulocyte Percent A 0.6 % (0-0.5); Immature Platelet Fraction Pct 6.2 % (0.9-11.2); Lymphocytes Absolute Auto 0.47 K/mm3 (0.9-3.2); Lymphocytes Percent Auto 5.3 % (18.3-44.2); Mean Corpuscular HGB Conc 26.2 g/dl (32-36); Mean Corpuscular Hemoglobin 18.4 pg (26-34); Mean Corpuscular Volume 70.3 fl (80-100); Monocytes Absolute Auto 0.6 K/mm3 (0.1-0.6); Monocytes Percent Auto 6.5 % (2.6-8.5); Neutrophils Absolute Auto 7.3 K/mm3 (1.3-6.7); Neutrophils Percent Auto 82.5 % (45.5-73.1); Platelet Count Result 166 k/mm3 (150-375); Red Blood Count 4.34 M/mm3 (4.6-6.20); Red Cell Distribution Width 27.8 % (11.5-14.5); White Blood Count 8.9 K/mm3 (4.5-10.0)
[2019-10-17 05:23] LABS: Blood Urea Nitrogen 13 mg/dL (9-20); Calcium 8.6 mg/dL (8.4-10.2); Carbon Dioxide 29 mmol/L (22-30); Chloride 107 mmol/L (98-107); Estimated CRCL calculation 51 ml/min; Estimated Glomerular Filt Rate > 60; Glucose 97 mg/dL (75-110); Sodium 138 mmol/L (137-145)
[2019-10-17 06:27] LABS: Anisocytosis 2+ (NORMAL); Hypochromasia 1+ (NORMAL); Platelet Estimate Adequate (Adequate)
[2019-10-17] MEDS: DOXAZOSIN MESYLATE 4 MG TABLET PO (09:03)
[2019-10-17] MEDS: PANTOPRAZOLE 40 MG TABLET PO ×2 (09:03→20:40)
--- NOTE | 2019-10-17 14:11 | PM.IMPN ---
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 10/13 Hbg 6.0, 2 U PRBC -->8.0 today 10/16 f/u h/h, and IV iron again today(total of 1200 mg) (2) Elevated blood pressure reading: Code(s): R03.0 - Elevated blood-pressure reading, without diagnosis of hypertension Status: Acute Assessment and Plan: 10/13 Improved with diuresis to 139/81 10/13 D/c furosemide Moniter bp (3) Cardiac murmur: Code(s): R01.1 - Cardiac murmur, unspecified Status: Acute Assessment and Plan: Was likely due to high flow state caused by anemia,, resolved (4) GERD (gastroesophageal reflux disease): Qualifiers: Esophagitis presence: esophagitis presence not specified Qualified Code(s): K21.9 - Gastro-esophageal reflux disease without esophagitis Code(s): K21.9 - Gastro-esophageal reflux disease without esophagitis Status: Acute Assessment and Plan: He has a remote history of peptic ulcers requiring surgical intervention in 1995. 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 Continue maintenance inhalers. (6) Acute respiratory failure with hypoxia: Code(s): J96.01 - Acute respiratory failure with hypoxia Status: Acute Assessment and Plan: Requiring O2 to keep sats in the 90s but have been able to taper to 1L NC. Continue updrafts antibiotics and monitor secondary to pna , aspiration (7) Pneumonia, aspiration: Code(s): J69.0 - Pneumonitis due to inhalation of food and vomit Status: Acute Assessment and Plan: Occurred in GI lab. Chest x-ray somewhat diffuse type infiltrates 10/14 but definite LLL infiltrate 10/15. Continue updrafts and D#3 of Zosyn. Subjective Date/time seen: 10/17/19 14:11 Interval history: Date of visit 10/16. 74-year-old gentleman with history of peptic ulcer disease and radiation proctitis was admitted with dyspnea on 10/12. Also had edema and orthopnea. Treated with IV Lasix. Given 2 units of packed cells for hemoglobin of 6. Denied gastrointestinal symptoms except chronic heartburn controlled on omeprazole. No change in stools. No shortness of breath. No chest pain or palpitations. No GI or complaints. Had EGD and colon 10/14. and some aspiration with EGD and reflux changes on ED Exam Narrative: Exam Narrative: Blood pressure 118/60 pulse is 80 saturating 91% but on 1 L , afebrile HEENT:, PERRL, NECK: No JVD CHEST: clear . HEART: NL S1/S2, regular, no murmur ABDOMEN: BS+, soft, nontender, no mass, EXTREMITIES: no Edema NEUROLOGIC: no focal deficits. PSYCH: Alert. affect appropriate Objective Data Vital Signs Vital Signs: Vital Signs - 24 hr 10/16/19 16:00 10/16/19 20:00 10/16/19 20:04 Temperature Pulse Rate 95 90 92 Respiratory Rate 18 18 Blood Pressure Pulse Oximetry 93 10/16/19 20:06 10/16/19 20:10 10/16/19 22:00 Temperature 36.5 C Pulse Rate 90 99 Respiratory Rate 18 20 Blood Pressure 121/54 L Pulse Oximetry 93 95 10/17/19 00:00 10/17/19 01:54 10/17/19 02:00 Temperature Pulse Rate 88 91 92 Respiratory Rate 18 18 Blood Pressure Pulse Oximetry 10/17/19 04:00 10/17/19 05:51 10/17/19 08:00 Temperature 36.2 C L Pulse Rate 92 98 98 Respiratory Rat
[2019-10-17] MEDS: MELATONIN 5 MG TABLET PO (20:40)
[2019-10-18] VITALS (17 sets, daily range): BP systolic 98–139; BP diastolic 73–85; PULSE 71–101; RESP 18–20; TEMP 35.8–36.1; O2SAT 85–92
[2019-10-18] MEDS: ALBUTEROL SULFATE NEB 2.5 MG/0.5 ML INH 5 MG INHALATION ×3 (01:30→14:15)
[2019-10-18] MEDS: PANTOPRAZOLE 40 MG TABLET PO (08:18)
[2019-10-18] MEDS: DOXAZOSIN MESYLATE 4 MG TABLET PO (08:18)
--- NOTE | 2019-10-18 14:19 | HOMEO2EVAL ---
Home Oxygen Evaluation RC: Home Oxygen (O2) Evaluation Start: 10/18/19 10:04 Freq: ONCE Status: Active Protocol: RPE Activity Type Activity Date Activity User E-Sign Co-Sign Detail Recorded Client Recorded Date Recorded By Document 10/18/19 13:40 JOSE [email or web address] 10/18/19 14:19 JOSE Document 10/18/19 13:43 JOSE [email or web address] 10/18/19 14:19 JOSE Document 10/18/19 13:45 JOSE [email or web address] 10/18/19 14:19 JOSE Document 10/18/19 13:47 [email or web address] [email or web address] 10/18/19 14:19 JOSE Document 10/18/19 13:48 [email or web address] [email or web address] 10/18/19 14:19 JOSE Document 10/18/19 13:50 [email or web address] [email or web address] 10/18/19 14:19 JOSE Document 10/18/19 14:00 [email or web address] [email or web address] 10/18/19 14:19 JOSE 10/18/19 10/18/19 10/18/19 13:40 13:43 13:45 Home O2 Evaluation Test Phase Resting Resting Exercise Oxygen Delivery Room Air Nasal Cannula Nasal Cannula Oxygen Flow Rate (L/min) 1 1 Pulse Oximetry (90-100 %) 87 L 90 85 L Ambulation Distance (feet) Home Oxygen Evaluation Comments Treatment Charges O2 Evaluation 10/18/19 10/18/19 10/18/19 13:47 13:48 13:50 Home O2 Evaluation Test Phase Exercise Exercise Exercise Oxygen Delivery Nasal Cannula Nasal Cannula Nasal Cannula Oxygen Flow Rate (L/min) 2 3 4 Pulse Oximetry (90-100 %) 86 L 87 L 90 Ambulation Distance (feet) 400 Home Oxygen Evaluation Comments Treatment Charges 10/18/19 14:00 Home O2 Evaluation Test Phase Resting Oxygen Delivery Oxygen Flow Rate (L/min) 1 Pulse Oximetry (90-100 %) 92 Ambulation Distance (feet) Home Oxygen Evaluation Comments PT REQUIRES 1L AT REST AND 4L WITH ACTIVITY Treatment Charges
--- NOTE | 2019-10-18 17:15 | PM.DS ---
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 10/13 Hbg 6.0, 2 U PRBC -->8.0 10/16 f/u h/h 10/22 prior to return visit with primary , and IV iron (total of 1200 mg) while inpatient so no oral iron on d/c (2) GERD (gastroesophageal reflux disease): Qualifiers: Esophagitis presence: esophagitis presence not specified Qualified Code(s): K21.9 - Gastro-esophageal reflux disease without esophagitis Code(s): K21.9 - Gastro-esophageal reflux disease without esophagitis Status: Acute Assessment and Plan: He has a remote history of peptic ulcers requiring surgical intervention in 1995. 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 Continue maintenance inhaler spiriva. (4) Acute respiratory failure with hypoxia: Code(s): J96.01 - Acute respiratory failure with hypoxia Status: Acute Assessment and Plan: Requiring O2 to keep sats in the 90s but have been able to taper to 1L NC. Continue updrafts antibiotics and monitor secondary to pna , aspiration Home 02 will be initially 1L NC at rest and 4L with activity and should be short course (5) Pneumonia, aspiration: Code(s): J69.0 - Pneumonitis due to inhalation of food and vomit Status: Acute Assessment and Plan: Occurred in GI lab. Chest x-ray somewhat diffuse type infiltrates 10/14 but definite LLL infiltrate 10/15. Continue updrafts and #4 of Zosyn.and will complete 7 day course total with oral Augmentin 875 bid DS: Summary Hospital Course Hospital Course: 74-year-old white male admitted with shortness of breath found to have iron deficiency anemia. Had high output heart failure with the anemia which was corrected with transfusion and IV diuresis. Hemoglobin 6 after 2 units of packed cells is 8.0 date prior to discharge with no evidence of continued blood loss. Receive 1200 mg IV iron while here EGD and colon revealed Hernandez's esophagus with no dysplasia and diverticular disease but no area active bleeding Aspirated during GI procedure on the and treated with Zosyn with improvement but still slightly hypoxic at discharge requiring home O2. Will finish course of Augmentin for total of 7 day treatment Follow-up appoint will with Dr. Evangelista 10/23 and repeat CBC 10/22 Time Spent with Patient Time attestation: Total time spent providing and/or coordinating discharge services:35 minutes Exam Narrative: Exam Narrative: Condition on discharge Blood pressure 136/84 pulse 72 saturating 92% on 1 L nasal cannula Lungs are clear hear no consolidation CV regular rate rhythm Abdomen soft nontender Extremities without edema Alert taking a diet well with no complaints DS: Data Data Completed and Pending Completed studies during hospitalization: Pending at discharge 10/15/19 09:34 Surgical [PTH] Routine Discharge Plan Discharge Attending physician on discharge: Johny Nick Consulting providers: Dejan Williamson Discharging Clinician: Johny Nick Patient Disposition: Home, Self-Care Activity: as tolerated Diet: regular Discharge Instructions: home 02 1L at rest and 4L with activity per respiratory th
--- NOTE | 2019-10-18 17:26 | PC.NURSE ---
call respiratory multiple times to see when home 02 would be available, RT gave [employer] number to call. [employer] was unaware that patient was discharging and will call back with an ETA.
== END 2019-10-18 18:24 | disposition home or self-care (01) | DRG 380 ==
LOC: ANHED 11:04 → ANH2MED 14:41
PROVIDERS: Internal Medicine; Internal Medicine Gastroenterology; Physician Assistant; Admitting Provider Internal Medicine; Emergency Provider Emergency Medicine; PCP Family Medicine; Visit Provider Internal Medicine
PROC: 0DJ08ZZ Inspection of Upper Intestinal Tract, Via Natural or Artificial Opening Endoscopic (ICD-10-PCS; CPT 43235; principal; 2019-10-15 09:30)
DX: K22.70 Barrett's esophagus without dysplasia (principal); J96.01 Acute respiratory failure with hypoxia; J69.0 Pneumonitis due to inhalation of food and vomit; D50.0 Iron deficiency anemia secondary to blood loss (chronic); J44.9 Chronic obstructive pulmonary disease, unspecified; K21.9 Gastro-esophageal reflux disease without esophagitis; Z87.11 Personal history of peptic ulcer disease; Z85.46 Personal history of malignant neoplasm of prostate; K57.31 Diverticulosis of large intestine without perforation or abscess with bleeding; Z85.51 Personal history of malignant neoplasm of bladder; K64.8 Other hemorrhoids; K57.90 Diverticulosis of intestine, part unspecified, without perforation or abscess without bleeding; N40.0 Benign prostatic hyperplasia without lower urinary tract symptoms; Z90.6 Acquired absence of other parts of urinary tract; M19.90 Unspecified osteoarthritis, unspecified site; G89.29 Other chronic pain; M54.9 Dorsalgia, unspecified; Z87.891 Personal history of nicotine dependence; Z92.3 Personal history of irradiation; R03.0 Elevated blood-pressure reading, without diagnosis of hypertension; R01.1 Cardiac murmur, unspecified; Z86.010 Personal history of colon polyps; G62.9 Polyneuropathy, unspecified; I50.83 High output heart failure
CPT/HCPCS: 36415; 36430; 71045; 71046; 71275; 80048; 80053; 82274; 82607; 82728; 82746; 83540; 83550; 83605; 83615; 83735; 83880; 84100; 84443; 84484; 85014; 85018; 85025; 85027; 85055; 85610; 85730; 86140; 86850; 86900; 86901; 86923; 87804; 88305; 88313; 93005; 93306; 93970; 94618; 94640; 96374; 99285; A9270; J1756; J1940; J2543; J2704; J3480; J7050; J7120; P9016; Q9967

== ENCOUNTER 2020-04-20 09:14 | Outpatient (CLI) | payer MEDICARE, OTHER, SELFPAY ==
[2020-04-20 09:29] LABS: Basophils Absolute Auto 0.1 K/mm3 (0.0-0.1); Basophils Percent Auto 1.1 % (0.2-1.2); Eosinophils Absolute Auto 0.4 K/mm3 (0-0.3); Eosinophils Percent Auto 9.5 % (0-4.4); Hematocrit 40.8 % (42.0-52.0); Hemoglobin 13.7 g/dL (14.0-18.0); Immature Granulocyte Absolute 0.02 K/mm3 (0.00-0.031); Immature Granulocyte Percent A 0.4 % (0-0.5); Lymphocytes Absolute Auto 0.77 K/mm3 (0.9-3.2); Lymphocytes Percent Auto 16.7 % (18.3-44.2); Mean Corpuscular HGB Conc 33.6 g/dl (32-36); Mean Corpuscular Hemoglobin 29.7 pg (26-34); Mean Corpuscular Volume 88.5 fl (80-100); Mean Platelet Volume 9.5 fl (7.4-10.4); Monocytes Absolute Auto 0.5 K/mm3 (0.1-0.6); Monocytes Percent Auto 10.2 % (2.6-8.5); Neutrophils Absolute Auto 2.9 K/mm3 (1.3-6.7); Neutrophils Percent Auto 62.1 % (45.5-73.1); Platelet Count Result 156 k/mm3 (150-375); Red Blood Count 4.61 M/mm3 (4.6-6.20); Red Cell Distribution Width 13.1 % (11.5-14.5); White Blood Count 4.6 K/mm3 (4.5-10.0)
[2020-04-20 09:44] LABS: Anion Gap 7 mmol/L (8-16); Blood Urea Nitrogen 22 mg/dL (9-20); Calcium 9.7 mg/dL (8.4-10.2); Carbon Dioxide 30 mmol/L (22-30); Chloride 101 mmol/L (98-107); Estimated Glomerular Filt Rate > 60; Glucose 97 mg/dL (75-110); Potassium 4.6 mmol/L (3.4-5.0); Sodium 138 mmol/L (137-145)
== END 2020-04-20 09:15 | disposition home or self-care (01) ==
PROVIDERS: PCP Family Medicine; Visit Provider Family Medicine
DX: D50.9 Iron deficiency anemia, unspecified (principal)
CPT/HCPCS: 36415; 80048; 85025

== ENCOUNTER 2020-06-09 14:06 | Outpatient (CLI) | payer MEDICARE, OTHER, SELFPAY ==
[2020-06-09 14:20] VITALS: PULSE 70; O2SAT 93
[2020-06-09 14:23] VITALS: PULSE 96; O2SAT 85
[2020-06-09 14:25] VITALS: O2SAT 87
[2020-06-09 14:27] VITALS: O2SAT 91
[2020-06-09 14:35] VITALS: PULSE 72; O2SAT 93
--- NOTE | 2020-06-09 14:55 | HOMEO2EVAL ---
Home Oxygen Evaluation RC: Home Oxygen (O2) Evaluation Start: 06/09/20 14:52 Freq: Status: Active Protocol: RPE Activity Type Activity Date Activity User E-Sign Co-Sign Detail Recorded Client Recorded Date Recorded By Document 06/09/20 14:20 JOSE [email or web address] 06/09/20 14:55 JOSE Document 06/09/20 14:23 JOSE [email or web address] 06/09/20 14:55 JOSE Document 06/09/20 14:25 JOSE [email or web address] 06/09/20 14:55 JOSE Document 06/09/20 14:27 JOSE [email or web address] 06/09/20 14:55 JOSE Document 06/09/20 14:35 JOSE [email or web address] 06/09/20 14:55 JOSE 06/09/20 06/09/20 06/09/20 14:20 14:23 14:25 Home O2 Evaluation Test Phase Resting Exercise Exercise Oxygen Delivery Room Air Room Air Nasal Cannula Oxygen Flow Rate (L/min) 1 Pulse Oximetry (90-100 %) 93 85 L 87 L Pulse Rate (60-100 beats/min) 70 96 Ambulation Distance (feet) Home Oxygen Evaluation Comments Treatment Charges O2 Evaluation 06/09/20 06/09/20 14:27 14:35 Home O2 Evaluation Test Phase Exercise Resting Oxygen Delivery Nasal Cannula Room Air Oxygen Flow Rate (L/min) 2 Pulse Oximetry (90-100 %) 91 93 Pulse Rate (60-100 beats/min) 72 Ambulation Distance (feet) 600 Home Oxygen Evaluation Comments PT REQUIRES 2 LITERS O2 WITH EXERTION/ ACTIVITY Treatment Charges
--- NOTE | 2020-06-09 14:55 | PCRCNOTE ---
PT REQUIRES 2L HOME O2 WITH ACTIVITY. HOME O2 EVAL COMPLETED AND STEPHANIE SENT AMB. ORDER FOR HOME O2 EVAL RATHER THAN 6 MINUTE WALK
== END 2020-06-09 14:07 | disposition home or self-care (01) ==
PROVIDERS: PCP Family Medicine; Visit Provider Family Medicine
DX: J96.01 Acute respiratory failure with hypoxia (principal)
CPT/HCPCS: 94618

== ENCOUNTER 2020-06-18 11:26 | Inpatient (IN) | payer MEDICARE, OTHER, SELFPAY ==
[2020-06-18] VITALS (24 sets, daily range): BP systolic 100–155; BP diastolic 65–140; PULSE 90–126; RESP 18–28; TEMP 36.4–36.5; O2SAT 83–100; BMI 25.1
--- NOTE | ~2020-06-18 | XR_ITS ---
EXAMINATION: XR chest 2V DATE: 06/20/2020 14:55 INDICATION: Cough and pneumonia TECHNIQUE: PA and lateral views of the chest are obtained. COMPARISON: 06/18/2020 FINDINGS: Airspace opacities in the left mid and lower lung zone persist but have improved. There is no pleural effusion or pneumothorax. The cardiomediastinal silhouette is normal. There is moderate th oracic spondylosis. IMPRESSION: 1. Improved airspace opacities of the left mid and lower lung zones, consistent with pneumonia. Reviewed, dictated and finalized at location A. TER MECHANIC
--- NOTE | ~2020-06-18 | US_ITS ---
EXAMINATION: US venous doppler [facility] DATE: 06/19/2020 14:06 INDICATION: Shortness of breath. TECHNIQUE: Grayscale ultrasound images without and with compression and Doppler ultrasound images of the bilateral lower extremity veins were obtained. COMPARISON: Ultrasound 10/13/2019 FINDINGS: The visualized portions of right common femoral vein, profunda (deep) femoral vein, femoral vein, pop liteal vein, peroneal veins, posterior tibial veins, and greater saphenous vein outflow are patent. The visualized portions of left common femoral vein, profunda femoral vein, femoral vein, popliteal v ein, peroneal veins, posterior tibial veins, and greater saphenous vein outflow are patent. IMPRESSION: 1. No deep venous thrombosis. Reviewed, dictated and finalized at location B. BRATION ENGINEER
--- NOTE | ~2020-06-18 | XR_ITS ---
EXAMINATION: XR chest 2V DATE: 06/18/2020 12:24 INDICATION: Dyspnea. TECHNIQUE: Frontal and lateral views of the chest were obtained. COMPARISON: Chest 2 views/02/26, chest CT 10/13/2019 FINDINGS: There are lucencies and interstitial opacities in the lungs, consistent with emphysema. The re are airspace opacities in left mid and lower lung zones. No pleural effusion or pneumothorax. The heart size is normal. IMPRESSION: 1. Worsened airspace opacities in left mid and lower lung zones, consistent with pneumonia. 2. Severe emphysema. Reviewed, dictated and finalized at location B. ADJUSTER IMPRESSION: 1. Worsened airspace opacities in left mid and lower lung zones, consistent wit h pneumonia. 2. Severe emphysema.
--- NOTE | ~2020-06-18 | CT_ITS ---
EXAMINATION: CTA chest PE protocol DATE: 06/19/2020 15:37 INDICATION: Shortness of breath. Elevated d-dimer. TECHNIQUE: Computed tomography angiography (CTA) of the chest was performed with 100 mL Omnipaque-350 intravenous contrast timed to evaluate the pulmonary arteries. Coronal maximum intensity projection 3D-reconstructions were created by the technologist. Automated exposure control and iterative reconst ruction technique were employed. Exam dose: 426.98 mGy-cm total exam DLP. COMPARISON: 06/18/2020 PA and lateral chest FINDINGS: There is diagnostic contrast enhancement of the pulmonary arteries and no evidence of pulmo nary embolism. Severe emphysematous changes are noted. There is patchy infiltrate in the left upper and lower lobes, including some infiltrate or atelectasi s along the posterior segment of the upper lobe near the greater fissure. There is some focal probabl e infiltrates in the middle lobe. Mild bilateral dependent lower lobe atelectasis. No hilar or mediastinal mass lesion or lymphadenopathy. No thoracic aortic aneurysm or dissection. Normal heart size. 3 cm left renal cyst. Normal morphology of the adrenal glands. Advanced healing anterior right ninth rib fracture. No suspicious osteolytic or osteoblastic lesions. Degenerative changes of the lower cervical spine. Diffuse idiopathic skeletal hyperostosis of the tho racic spine. No suspicious osteolytic or osteoblastic lesions. IMPRESSION: Patchy bilateral infiltrates, left greater than right Severe emphysema No evidence of pulmonary embolism Reviewed, dictated and finalized at Location A. Reviewed, dictated and finalized at location A. RAL DIRECTOR/EMBALMER/OWNER
--- NOTE | ~2020-06-18 | XR_ITS ---
EXAMINATION: XR chest 1V portable DATE: 06/23/2020 12:48 INDICATION: Pneumonia. TECHNIQUE: A single frontal view of the chest was obtained. COMPARISON: Chest 2 views 06/20/2020, chest CT 06/19/2020 FINDINGS: There are lucencies in the lungs, consistent with emphysema. There are mild airspace opacit ies in the mid and lower lung zones. No pleural effusion or pneumothorax. The heart size is normal. IMPRESSION: 1. Stable mild airspace opacities in the mid and lower lung zones, consistent with atelectasis/scarri ng versus pneumonia. 2. Severe emphysema. Reviewed, dictated and finalized at location A. ES 9 12 TUTOR IMPRESSION: 1. Stable mild airspace opacities in the mid and lower lung zones, consistent w ith atelectasis/scarring versus pneumonia. 2. Severe emphysema.
--- NOTE | 2020-06-18 11:28 | ECG_ITS ---
Measurements Intervals [place] Rate: 114 P: 92 AR: 130 QRS: 83 QRSD: 84 T: 77 QT: 327 QTc: 451 Interpretive Statements SINUS TACHYCARDIA POSSIBLE LEFT ATRIAL ENLARGEMENT BORDERLINE ST-T WAVE ABNORMALITY- INF/LAT LEADS BASELINE ARTIFACT- I, II, III, AVR, AVL, AVF, V3-V6 ABNORMAL ECG Electronically Signed On 06-18-2020 11:40:31 SCOOPER by Vic Melendrez D.O.
[2020-06-18 11:51] LABS: Basophils Percent Auto 0.4 % (0.2-1.2); Eosinophils Percent Auto 0.3 % (0-4.4); Hematocrit 41.4 % (42.0-52.0); Hemoglobin 13.7 g/dL (14.0-18.0); Immature Granulocyte Absolute 0.03 K/mm3 (0.00-0.031); Immature Granulocyte Percent A 0.3 % (0-0.5); Lymphocytes Percent Auto 3.5 % (18.3-44.2); Mean Corpuscular HGB Conc 33.1 g/dl (32-36); Mean Corpuscular Hemoglobin 29.5 pg (26-34); Mean Corpuscular Volume 89.2 fl (80-100); Mean Platelet Volume 9.8 fl (7.4-10.4); Monocytes Absolute Auto 0.8 K/mm3 (0.1-0.6); Monocytes Percent Auto 6.6 % (2.6-8.5); Neutrophils Absolute Auto 10.2 K/mm3 (1.3-6.7); Neutrophils Percent Auto 88.9 % (45.5-73.1); Platelet Count Result 159 k/mm3 (150-375); Red Blood Count 4.64 M/mm3 (4.6-6.20); Red Cell Distribution Width 12.5 % (11.5-14.5); White Blood Count 11.4 K/mm3 (4.5-10.0)
[2020-06-18 12:01] LABS: Alveolar/Arterial O2 Gradient 71.7 mmHg; Base Excess ABG -2.3 mEq/l (+/-2.0); Carboxyhemoglobin 0.9 % THb (0-2.0); Device NASAL CANNULA; Fractional Inspired Oxygen 24 %; HCO3 ABG 22.2 mEq/l (22.0-26.0); Methemoglobin ABG 0.3 %THb (0-1.5); Modified Allen's Test Pass; Oxygen Content ABG 16.7 %vol (16.0-22.0); Oxygen Saturation ABG 88.8 % (95.0-100.0); Oxyhemoglobin 87.2 % THb (90.0-100.0); PCO2 ABG 37.1 mmHg (35.0-45.0); PO2 ABG 55.3 mmHg (80.0-100.0); Reduced Hemoglobin 11.6 %THb (0-5.0); Site Drawn LEFT RADIAL; Total Hemoglobin 13.6 g/dL (12.0-18.0); pH ABG 7.394 (7.350-7.450)
[2020-06-18 12:02] LABS: Anion Gap 2 mmol/L (8-16); Blood Urea Nitrogen 25 mg/dL (9-20); Calcium 9.5 mg/dL (8.4-10.2); Carbon Dioxide 28 mmol/L (22-30); Chloride 107 mmol/L (98-107); Estimated CRCL calculation 55 ml/min; Estimated Glomerular Filt Rate > 60; Glucose 123 mg/dL (75-110); Potassium 4.4 mmol/L (3.4-5.0); Sodium 137 mmol/L (137-145)
--- NOTE | 2020-06-18 12:05 | ED.SOB ---
HPI - SOB/Dyspnea General Chief Complaint: Shortness of Breath/Dyspnea Stated Complaint: SOB Time Seen by Provider: 06/18/20 12:05 Source: patient and EMS Mode of arrival: EMS Limitations: no limitations History of Present Illness HPI Narrative: Patient is a 75-year-old male with a history of CHF, COPD, chronically on 1 L of home oxygen who presents for evaluation of shortness of breath from his primary care physician's office. Patient was seen this morning, noted to be hypoxic with increased work of breathing, his oxygen via nasal cannula was increased to 4 L, EMS was called and patient was transferred to this facility. At the time of assessment, patient feels improved after he was given a DuoNeb treatment in route. He does have audible expiratory wheezing, oxygen saturation is 88% on 1 L, thus this was increased to 3 L with improvement. Patient is denying chest pain. He reports productive cough without hemoptysis. He denies fever, chills, myalgias, rhinorrhea. He denies lower leg swelling or pain. He denies chest pain. Patient is a former smoker, cessation over 13 years ago. Related Data Home Medications Medication Instructions Recorded Confirmed Caltrate 600 plus D 1 tablet PO DAILY 10/13/19 06/18/20 doxazosin 4 mg PO DAILY 10/13/19 06/18/20 Allergies Allergy/AdvReac Type Severity Reaction Status Date / Time No Known Allergies Allergy Verified 06/18/20 11:34 Review of Systems Review of Systems: Narrative: CONSTITUTIONAL: Denies fever ENT: Denies rhinorrhea, congestion, sore throat, or otalgia. CARDIOVASCULAR: Denies chest pain, palpitations, or edema. RESPIRATORY: Reports cough and shortness of breath GASTROINTESTINAL: Denies abdominal pain, nausea, vomiting, or diarrhea. GENITOURINARY: Denies dysuria or hematuria. SKIN: Denies rash or itching. MUSCULOSKELETAL: Denies back pain, joint pain, or myalgia. NEUROLOGIC: Denies headache, numbness, or weakness. [facility] Past Medical History Medical History Benign prostatic hyperplasia Bladder cancer Status post TURBT in 2016. BMI 25.0-25.9,adult Chronic back pain For which he takes gabapentin. COPD (chronic obstructive pulmonary disease) Dyspnea Former smoker 1.5 packs per day for 40 years, quit in 2006. GERD (gastroesophageal reflux disease) Osteoarthritis Peptic ulcer 1995. Prostate cancer Status post radiation in 2016. Surgical History Surgical History History of arthroscopic knee surgery History of bladder surgery TURBT in 2015. History of laparotomy Related to what sounds like peptic or duodenal ulcer, and 1995. Family History Family History Mother History of blood clots Leukemia Sibling Prostate carcinoma Social History Social History Social History: The patient is and lives with his in [place]. 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 He designates his , Hannah, as his surrogate decision maker and he wishes to be a full code. He smokes 1.5 packs of cigarettes per day for about 45 years, and quit in 2006. He denies alcohol and drug abuse. Smoking packs per day: 1.5 Smoking cigarettes per day: 30.0 Years smoked: 45 Smoking pack-years: 67.50 Smoking status: Former smoker Smoking end date: 02/23/07 Spiritual care concerns: No Agree to blood products: Yes Exam Narrative: Exam Narrative: GENERAL: Awake, alert, conversant HEAD: Normocephalic, atraumatic. EYES: PERRLA and EOMI. ENT: Nares clear, no rhinorrhea or epistaxis. Mucous membranes moist. NECK: Supple. CHEST: Tachypnea, mild increased work of breathing, bilateral expiratory wheezing with poor aeration at the bases, no crackles HEART: Tachycardic rate, sinus rhythm ABDOMEN:Non distended, non tender EXTREMITIES: Normal range of motion. No
[2020-06-18 12:14] LABS: NT Pro B Type Natriuretic Pept 237 PG/ML (5-100); Troponin I < 0.012 ng/mL (0.000-0.034)
[2020-06-18] MEDS: IPRATROPIUM BR 0.02% INH SOLN 0.5 MG/2.5 ML VIAL 2 MG INHALATION (12:37)
[2020-06-18] MEDS: methylPREDNISolone SOD SUCC 125 MG VIAL IV PUSH (12:37)
[2020-06-18] MEDS: FAMOTIDINE 20 MG/2 ML VIAL IV PUSH (12:37)
[2020-06-18] MEDS: ALBUTEROL SULFATE NEB 2.5 MG/0.5 ML INH 10 MG INHALATION (12:37)
[2020-06-18] MEDS: MAGNESIUM SULF 2 GM/WATER 50ML 2 GM/50 ML BAG IVPB (12:37)
[2020-06-18] MEDS: SODIUM CHLORIDE 0.9% IV 500 ML 999 ML IV CONT (12:37)
[2020-06-18 13:26] LABS: Lactic Acid Reflex 1.3 mmol/L (0.7-2.1)
--- NOTE | 2020-06-18 18:19 | ADMGEN ---
Late entry: 1545 Patient arrived from ED, alert and orientated. This patient, Joe Mead, was admitted to 3 [facility] Surg Room 312-01. Patient/family oriented to hospital policies and general routines including ID bracelet, bed and alarms, visiting hours, pain management, procedures, bathroom and other care routines, personal items, smoking policy, room service/diet, and visiting hours. Information on how to activate the Rapid Response Team has been discussed. Patient/Family are encouraged to report perceived risks to care and to ask questions if they do not understand what they are told or what they should do.
--- NOTE | 2020-06-18 18:40 | PM.IMHP ---
H&P: HPI History of Present Illness Date/Time: 06/18/20 18:40 Chief complaint: COPD exacerbation/pneumonia Narrative: Joe Mead is a 75 year old male with past medical history of COPD with chronic respiratory failure on home oxygen will need patient states that he had been coughing and shortness of breath and he went to see his primary care doctor today while in the office patient was quite hypoxic on room air he was desatting an 88% patient was to emergency department for further evaluation patient had a chest x-ray which is suspicious for pneumonia and patient was started on Rocephin azithromycin, patient also concern COVID-19 though he denies any exposure as he states he and his a pretty much homebound, patient currently on 3 L, denies any shortness of breath fever or chills, plan is to check for COVID-19 we have placed the patient on isolation will monitor and further recommendation to follow, upon a patient with tachycardia tachypnea and leukocytosis concern for sepsis secondary to pneumonia blood cultures are drawn and will follow-up. Review of Systems Review of Systems: All systems reviewed & are unremarkable except as noted in HPI and below PMFSH Past Medical History Medical History Benign prostatic hyperplasia Bladder cancer Status post TURBT in 2015. BMI 25.0-25.9,adult Chronic back pain For which he takes gabapentin. COPD (chronic obstructive pulmonary disease) Dyspnea Former smoker 1.5 packs per day for 40 years, quit in 2006. GERD (gastroesophageal reflux disease) Osteoarthritis Peptic ulcer 1995. Prostate cancer Status post radiation in 2015. Surgical History Surgical History History of arthroscopic knee surgery History of bladder surgery TURBT in 2015. History of laparotomy Related to what sounds like peptic or duodenal ulcer, and 1995. Family History Family History Mother History of blood clots Leukemia Sibling Prostate carcinoma Social History Social History Social History: The patient is and lives with his in [place]. 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 He designates his , Hannah, as his surrogate decision maker and he wishes to be a full code. He smokes 1.5 packs of cigarettes per day for about 45 years, and quit in 2006. He denies alcohol and drug abuse. Smoking packs per day: 1.5 Smoking cigarettes per day: 30.0 Years smoked: 45 Smoking pack-years: 67.50 Smoking status: Former smoker Smoking end date: 02/23/07 Alcohol intake: current Substance use: never Spiritual care concerns: No Agree to blood products: Yes Meds Home Medications and Allergies Home Medications Medication Instructions Recorded Confirmed Type Caltrate 600 plus D 1 tablet PO DAILY 10/13/19 06/18/20 History doxazosin 4 mg PO DAILY 10/13/19 06/18/20 History tiotropium bromide 2.5 2 puff INHALATION DAILY #1 device 04/24/20 06/18/20 Rx mcg/actuation mist for inhalation Allergies Allergy/AdvReac Type Severity Reaction Status Date / Time No Known Allergies Allergy Verified 06/18/20 11:34 Vital Signs Vital Signs - 24 hr 06/18/20 11:23 06/18/20 11:28 06/18/20 11:32 Temperature 97.7 F 97.7 F Pulse Rate 114 H 115 H Respiratory Rate 24 H Blood Pressure 106/91 H Pulse Oximetry 88 L 06/18/20 11:34 06/18/20 11:38 06/18/20 11:45 Temperature Pulse Rate 126 H 117 H 117 H Respiratory Rate 26 H 21 H 21 H Blood Pressure 155/140 H Pulse Oximetry 93 06/18/20 12:01 06/18/20 12:02 06/18/20 12:15 Temperature Pulse Rate 116 H 116 H 124 H Respiratory Rate 24 H 28 H 25 H Blood Pressure 141/76 H Pulse Oximetry 91 91 83 L 06/18/20 12:17 06/18/20 12:27 06/18/20 12:36 Temperature Pulse Rate 122 H 118 H 116 H
[2020-06-18] MEDS: ALBUTEROL SULFATE NEB 2.5 MG/0.5 ML INH 5 MG INHALATION (20:54)
[2020-06-18] MEDS: IPRATROPIUM BR 0.02% INH SOLN 0.5 MG/2.5 ML VIAL INHALATION (20:54)
[2020-06-19] VITALS (17 sets, daily range): BP systolic 131–173; BP diastolic 68–82; PULSE 74–108; RESP 16–22; TEMP 36.5–36.8; O2SAT 92–97
[2020-06-19 00:27] LABS: SARS-CoV-2 RNA PCR Negative
[2020-06-19] MEDS: ALBUTEROL SULFATE NEB 2.5 MG/0.5 ML INH 5 MG INHALATION ×5 (03:53→21:06)
[2020-06-19] MEDS: IPRATROPIUM BR 0.02% INH SOLN 0.5 MG/2.5 ML VIAL INHALATION ×5 (03:53→21:06)
[2020-06-19 06:29] LABS: Basophils Percent Auto 0.1 % (0.2-1.2); Hematocrit 36.4 % (42.0-52.0); Hemoglobin 12.1 g/dL (14.0-18.0); Immature Granulocyte Absolute 0.05 K/mm3 (0.00-0.031); Immature Granulocyte Percent A 0.4 % (0-0.5); Lymphocytes Absolute Auto 0.43 K/mm3 (0.9-3.2); Lymphocytes Percent Auto 3.1 % (18.3-44.2); Mean Corpuscular HGB Conc 33.2 g/dl (32-36); Mean Corpuscular Hemoglobin 29.4 pg (26-34); Mean Corpuscular Volume 88.3 fl (80-100); Monocytes Absolute Auto 0.9 K/mm3 (0.1-0.6); Monocytes Percent Auto 6.3 % (2.6-8.5); Neutrophils Absolute Auto 12.5 K/mm3 (1.3-6.7); Neutrophils Percent Auto 90.1 % (45.5-73.1); Platelet Count Result 165 k/mm3 (150-375); Red Blood Count 4.12 M/mm3 (4.6-6.20); Red Cell Distribution Width 12.5 % (11.5-14.5); White Blood Count 13.9 K/mm3 (4.5-10.0)
[2020-06-19 06:46] LABS: Alanine Aminotransferase 21 U/L (4-50); Albumin Level 3.7 g/dL (3.5-5.1); Alkaline Phosphatase 84 U/L (38-126); Anion Gap 4 mmol/L (8-16); Aspartate Amino Transferase 28 U/L (17-59); Bilirubin,Total 0.4 mg/dL (0.2-1.3); Blood Urea Nitrogen 22 mg/dL (9-20); Calcium 9.4 mg/dL (8.4-10.2); Carbon Dioxide 29 mmol/L (22-30); Chloride 104 mmol/L (98-107); Estimated CRCL calculation 60 ml/min; Estimated Glomerular Filt Rate > 60; Glucose 125 mg/dL (75-110); Sodium 137 mmol/L (137-145)
[2020-06-19 07:02] LABS: D Dimer 1.57 ug/mL (<0.48)
[2020-06-19] MEDS: ENOXAPARIN 80 MG/0.8 ML SYRINGE 75 MG SUB-Q ×2 (10:02→20:42)
[2020-06-19] MEDS: CALCIUM CARBONATE (TUMS) 500 MG (200 MG ELEMENTAL) PO ×2 (10:02→17:03)
--- NOTE | 2020-06-19 10:09 | WPDCDIQUERY2 ---
CDI Query Clarification Request -On arrival, pt c/o shortness of breath. EDP documented noted to be hypoxic with increased work of breathing, his oxygen via nasal cannula was increased to 4 L and He does have audible expiratory wheezing, oxygen saturation is 88% on 1 L, thus this was increased to 3 L . -Pt is on home O2 at 1L -06/18 ABG's pH7.394 pCO2 37 pO2 55.3 HCO3 22 O2 sats 88% on 1L O2 -Pt currently on O2 at 3L -EDP documented acute respiratory failure -Chronic respiratory failure documented by hospitalist Please clarify if acute respiratory failure was ruled in or ruled out.
--- NOTE | 2020-06-19 13:51 | PM.IMPN ---
Progress Note: A&P Assessment and Plan (1) Acute and chronic respiratory failure: Code(s): J96.20 - Acute and chronic respiratory failure, unspecified whether with hypoxia or hypercapnia Status: Acute Assessment and Plan: Patient presented with increased shortness of breath and was noted to be hypoxic at 80% to. Suspect secondary to COPD exacerbation and pneumonia. Patient has increased O2 requirements from his typical 2 L. He is maintaining adequate oxygen saturations on 3 L O2 per nasal cannula. CTA negative for PE. Continue supplemental O2 as needed with goal saturation 90% or above. Wean to goal. Continue with treatment for pneumonia and COPD as noted below (2) Pneumonia: Qualifiers: Laterality: bilateral Lung location: unspecified part of lung Pneumonia type: due to unspecified organism Qualified Code(s): J18.9 - Pneumonia, unspecified organism Code(s): J18.9 - Pneumonia, unspecified organism Status: Acute Assessment and Plan: Chest x-ray showed worsened airspace opacities in the mid and lower lung zones consistent with pneumonia also noted on CTA. COVID-19 negative. He is afebrile. He does have mild leukocytosis. Currently requiring 3 L O2 per nasal cannula. Continue IV Rocephin and azithromycin Will check sputum culture Blood cultures pending and will be monitored Check pneumococcal and Legionella urinary Supportive care to include bronchodilators expectorants, antipyretics (3) COPD (chronic obstructive pulmonary disease): Qualifiers: COPD type: emphysema Emphysema type: unspecified Qualified Code(s): J43.9 - Emphysema, unspecified Code(s): J44.9 - Chronic obstructive pulmonary disease, unspecified Status: Acute Assessment and Plan: Patient with history of COPD and former heavy smoker (quit several years ago). He has increased dyspnea and diffuse wheezing. Previously noted yellow sputum production that he notes is improving. Begin IV solumedrol Continue albuterol as above Supportive care as above. (4) Sepsis: Code(s): A41.9 - Sepsis, unspecified organism Status: Acute Assessment and Plan: Present on admission evident by tachycardia and leukocytosis. Patient is afebrile. Lactic 1.3. Suspected source of infection is pneumonia. Tachycardia has improved. Continue IV antibiotics Monitor vital signs closely Await blood cultures. (5) COVID-19 ruled out: Code(s): Z03.818 - Encounter for observation for suspected exposure to other biological agents ruled out Status: Acute Assessment and Plan: Tested negative on 06/18/2020. Isolation precautions discontinued. Subjective Date/time seen: 06/19/20 13:51 Interval history: Date of service: 06/19/2020 Joe Mead is a 75-year-old male with a history of bladder cancer, prostate cancer, and BPH, COPD, and peptic ulcer disease who is seen in follow-up for COPD exacerbation and pneumonia. He is feeling much better today. He is able to ambulate to the bathroom and denies any dyspnea exertion, which is significant improvement compared to presentation. His cough has diminished significantly. He has no sputum production. He denies orthopnea or PND. He feels that his wheezing has resolved. Denies chest pain or palpitations. He does complain of some GERD symptoms. Otherwise, he has no concerns at this time. He denies fever, chills, nausea, dizziness, or lightheadedness. Denies abdominal pain. He has been eating well. Denies urinary symptoms. Review of Systems Review of Systems: All systems reviewed & are unremarkable except as noted in HPI and below Exam Narrative: Exam Narrative: Mr. Mead is a well-nourished, well-appearing 75-year-old male who is lying supine in bed. He appears comfortable and is in NARD. HR 106, BP 131/74, RR 22, T 97.8?, 96% on 3 L Neuro: awake, alert and oriented x4, speech clear, no fo
[2020-06-19] MEDS: DOXAZOSIN MESYLATE 4 MG TABLET PO (17:03)
[2020-06-19] MEDS: methylPREDNISolone SOD SUCC 125 MG VIAL 60 MG IV PUSH (17:06)
[2020-06-19] MEDS: guaiFENesin 12 HR 600 MG TABCR PO (20:42)
[2020-06-20] VITALS (12 sets, daily range): BP systolic 153–162; BP diastolic 70–84; PULSE 84–102; RESP 18–20; TEMP 36.4–36.9; O2SAT 91–94
[2020-06-20] MEDS: methylPREDNISolone SOD SUCC 125 MG VIAL 60 MG IV PUSH ×4 (00:08→17:47)
[2020-06-20] MEDS: CALCIUM CARBONATE (TUMS) 500 MG (200 MG ELEMENTAL) PO ×3 (00:08→21:14)
[2020-06-20] MEDS: ALBUTEROL SULFATE NEB 2.5 MG/0.5 ML INH 5 MG INHALATION ×4 (03:20→20:40)
[2020-06-20] MEDS: IPRATROPIUM BR 0.02% INH SOLN 0.5 MG/2.5 ML VIAL INHALATION ×4 (03:20→20:40)
[2020-06-20 07:05] LABS: Basophils Percent Auto 0.1 % (0.2-1.2); Hematocrit 37.7 % (42.0-52.0); Hemoglobin 12.3 g/dL (14.0-18.0); Immature Granulocyte Absolute 0.06 K/mm3 (0.00-0.031); Immature Granulocyte Percent A 0.7 % (0-0.5); Lymphocytes Absolute Auto 0.35 K/mm3 (0.9-3.2); Lymphocytes Percent Auto 3.8 % (18.3-44.2); Mean Corpuscular HGB Conc 32.6 g/dl (32-36); Mean Corpuscular Hemoglobin 28.3 pg (26-34); Mean Corpuscular Volume 86.9 fl (80-100); Mean Platelet Volume 10.2 fl (7.4-10.4); Monocytes Absolute Auto 0.1 K/mm3 (0.1-0.6); Monocytes Percent Auto 1.2 % (2.6-8.5); Neutrophils Absolute Auto 8.6 K/mm3 (1.3-6.7); Neutrophils Percent Auto 94.2 % (45.5-73.1); Platelet Count Result 152 k/mm3 (150-375); Red Blood Count 4.34 M/mm3 (4.6-6.20); Red Cell Distribution Width 12.2 % (11.5-14.5); White Blood Count 9.2 K/mm3 (4.5-10.0)
[2020-06-20 07:22] LABS: Alanine Aminotransferase 22 U/L (4-50); Albumin Level 3.8 g/dL (3.5-5.1); Alkaline Phosphatase 91 U/L (38-126); Anion Gap 5 mmol/L (8-16); Aspartate Amino Transferase 30 U/L (17-59); Bilirubin,Total 0.4 mg/dL (0.2-1.3); Blood Urea Nitrogen 18 mg/dL (9-20); CRP 5.2 mg/dL (<1.0); Calcium 9.7 mg/dL (8.4-10.2); Carbon Dioxide 29 mmol/L (22-30); Chloride 101 mmol/L (98-107); Estimated CRCL calculation 67 ml/min; Estimated Glomerular Filt Rate > 60; Glucose 143 mg/dL (75-110); Potassium 4.5 mmol/L (3.4-5.0); Sodium 135 mmol/L (137-145)
[2020-06-20] MEDS: ENOXAPARIN 80 MG/0.8 ML SYRINGE 75 MG SUB-Q ×2 (08:07→21:14)
[2020-06-20] MEDS: guaiFENesin 12 HR 600 MG TABCR PO ×2 (08:09→21:14)
[2020-06-20] MEDS: DOXAZOSIN MESYLATE 4 MG TABLET PO (08:09)
--- NOTE | 2020-06-20 13:16 | PM.IMPN ---
Progress Note: A&P Assessment and Plan (1) Acute and chronic respiratory failure: Code(s): J96.20 - Acute and chronic respiratory failure, unspecified whether with hypoxia or hypercapnia Status: Acute Assessment and Plan: Patient presented with increased shortness of breath and was noted to be hypoxic at 80% to. Suspect secondary to COPD exacerbation and pneumonia. Patient has increased O2 requirements from his typical 2 L. He is maintaining adequate oxygen saturations on 3 L O2 per nasal cannula. CTA negative for PE. Continue supplemental O2 as needed with goal saturation 90% or above. Wean to goal. Continue with treatment for pneumonia and COPD as noted below (2) Pneumonia: Qualifiers: Laterality: bilateral Lung location: unspecified part of lung Pneumonia type: due to unspecified organism Qualified Code(s): J18.9 - Pneumonia, unspecified organism Code(s): J18.9 - Pneumonia, unspecified organism Status: Acute Assessment and Plan: Chest x-ray showed worsened airspace opacities in the mid and lower lung zones consistent with pneumonia also noted on CTA. COVID-19 negative. He is afebrile. He does have mild leukocytosis. Currently requiring 3 L O2 per nasal cannula. Continue IV Rocephin and azithromycin Will check sputum culture Blood cultures pending and will be monitored Check pneumococcal and Legionella urinary Supportive care to include bronchodilators expectorants, antipyretics (3) COPD (chronic obstructive pulmonary disease): Qualifiers: COPD type: emphysema Emphysema type: unspecified Qualified Code(s): J43.9 - Emphysema, unspecified Code(s): J44.9 - Chronic obstructive pulmonary disease, unspecified Status: Acute Assessment and Plan: Patient with history of COPD and former heavy smoker (quit several years ago). He has increased dyspnea and diffuse wheezing. Previously noted yellow sputum production that he notes is improving. Begin IV solumedrol Continue albuterol as above Supportive care as above. (4) Sepsis: Code(s): A41.9 - Sepsis, unspecified organism Status: Acute Assessment and Plan: Present on admission evident by tachycardia and leukocytosis. Patient is afebrile. Lactic 1.3. Suspected source of infection is pneumonia. Tachycardia has improved. Continue IV antibiotics Monitor vital signs closely Await blood cultures. (5) COVID-19 ruled out: Code(s): Z03.818 - Encounter for observation for suspected exposure to other biological agents ruled out Status: Acute Assessment and Plan: Tested negative on 06/18/2020. Isolation precautions discontinued. (6) Diarrhea: Code(s): R19.7 - Diarrhea, unspecified Status: Acute Assessment and Plan: Will send stool for c diff. Additional Plan Will stool for c diff and repeat x ray chest. Subjective Date/time seen: 06/20/20 13:16 Interval history: Patient was seen during the morning rounds today. Mild sob, no chest pain, mood stable. Has mild diarrhea Review of Systems Review of Systems: All systems reviewed & are unremarkable except as noted in HPI and below Exam Narrative: Exam Narrative: Mr. Mead is a well-nourished, well-appearing 75-year-old male who is lying supine in bed. He appears comfortable and is in NARD. HR 106, BP 131/74, RR 22, T 97.8?, 96% on 3 L Neuro: awake, alert and oriented x4, speech clear, no focal neuro deficits noted HEENMT: normocephalic, atraumatic, EOMI, sclerae anicteric, moist oral mucosa, tongue midline, nares patent Neck: supple, no lymphadenopathy Respiratory: Diffuse inspiratory and expiratory wheezing (L>R), no crackles or rhonchi, nonlabored breathing, occasional dry cough noted on exam Cardio: regular rate, regular rhythm with S1-S2 Abdomen: nondistended, normoactive bowel sounds, soft, nontender to palpation, no rigidity or guarding Extremities:
[2020-06-20] MEDS: metroNIDAZOLE 250 MG TABLET 500 MG PO (17:48)
[2020-06-21] VITALS (10 sets, daily range): BP systolic 130–153; BP diastolic 60–87; PULSE 70–92; RESP 16–20; TEMP 36.4–36.9; O2SAT 91–93
[2020-06-21] MEDS: metroNIDAZOLE 250 MG TABLET 500 MG PO ×5 (00:01→23:43)
[2020-06-21] MEDS: methylPREDNISolone SOD SUCC 125 MG VIAL 60 MG IV PUSH ×5 (00:02→23:43)
[2020-06-21] MEDS: ALBUTEROL SULFATE NEB 2.5 MG/0.5 ML INH 5 MG INHALATION ×4 (03:12→20:18)
[2020-06-21] MEDS: IPRATROPIUM BR 0.02% INH SOLN 0.5 MG/2.5 ML VIAL INHALATION ×4 (03:12→20:18)
[2020-06-21 07:17] LABS: Basophils Percent Auto 0.1 % (0.2-1.2); Hematocrit 38.7 % (42.0-52.0); Hemoglobin 12.9 g/dL (14.0-18.0); Immature Granulocyte Absolute 0.11 K/mm3 (0.00-0.031); Immature Granulocyte Percent A 1.1 % (0-0.5); Lymphocytes Absolute Auto 0.39 K/mm3 (0.9-3.2); Lymphocytes Percent Auto 3.8 % (18.3-44.2); Mean Corpuscular HGB Conc 33.3 g/dl (32-36); Mean Corpuscular Hemoglobin 29.3 pg (26-34); Mean Platelet Volume 10.5 fl (7.4-10.4); Monocytes Absolute Auto 0.3 K/mm3 (0.1-0.6); Monocytes Percent Auto 3.2 % (2.6-8.5); Neutrophils Absolute Auto 9.5 K/mm3 (1.3-6.7); Neutrophils Percent Auto 91.8 % (45.5-73.1); Platelet Count Result 176 k/mm3 (150-375); Red Cell Distribution Width 12.2 % (11.5-14.5); White Blood Count 10.4 K/mm3 (4.5-10.0)
[2020-06-21 07:41] LABS: Alanine Aminotransferase 21 U/L (4-50); Albumin Level 3.8 g/dL (3.5-5.1); Alkaline Phosphatase 86 U/L (38-126); Anion Gap 6 mmol/L (8-16); Aspartate Amino Transferase 26 U/L (17-59); Bilirubin,Total 0.3 mg/dL (0.2-1.3); Blood Urea Nitrogen 23 mg/dL (9-20); CRP 2.3 mg/dL (<1.0); Calcium 9.8 mg/dL (8.4-10.2); Carbon Dioxide 30 mmol/L (22-30); Chloride 99 mmol/L (98-107); Estimated CRCL calculation 67 ml/min; Estimated Glomerular Filt Rate > 60; Glucose 127 mg/dL (75-110); Potassium 4.2 mmol/L (3.4-5.0); Sodium 135 mmol/L (137-145)
[2020-06-21] MEDS: ENOXAPARIN 80 MG/0.8 ML SYRINGE 75 MG SUB-Q ×2 (08:05→20:06)
[2020-06-21] MEDS: guaiFENesin 12 HR 600 MG TABCR PO ×2 (08:05→20:06)
[2020-06-21] MEDS: DOXAZOSIN MESYLATE 4 MG TABLET PO (08:06)
--- NOTE | 2020-06-21 11:00 | PM.IMPN ---
Progress Note: A&P Assessment and Plan (1) Acute and chronic respiratory failure: Code(s): J96.20 - Acute and chronic respiratory failure, unspecified whether with hypoxia or hypercapnia Status: Acute Assessment and Plan: Patient presented with increased shortness of breath and was noted to be hypoxic at 80% to. Suspect secondary to COPD exacerbation and pneumonia. Patient has increased O2 requirements from his typical 2 L. He is maintaining adequate oxygen saturations on 3 L O2 per nasal cannula. CTA negative for PE. Continue supplemental O2 as needed with goal saturation 90% or above. Wean to goal. Continue with treatment for pneumonia and COPD as noted below (2) Pneumonia: Qualifiers: Laterality: bilateral Lung location: unspecified part of lung Pneumonia type: due to unspecified organism Qualified Code(s): J18.9 - Pneumonia, unspecified organism Code(s): J18.9 - Pneumonia, unspecified organism Status: Acute Assessment and Plan: Chest x-ray showed worsened airspace opacities in the mid and lower lung zones consistent with pneumonia also noted on CTA. COVID-19 negative. He is afebrile. He does have mild leukocytosis. Currently requiring 3 L O2 per nasal cannula. Continue IV Rocephin and azithromycin Will check sputum culture Blood cultures pending and will be monitored Check pneumococcal and Legionella urinary Supportive care to include bronchodilators expectorants, antipyretics (3) COPD (chronic obstructive pulmonary disease): Qualifiers: COPD type: emphysema Emphysema type: unspecified Qualified Code(s): J43.9 - Emphysema, unspecified Code(s): J44.9 - Chronic obstructive pulmonary disease, unspecified Status: Acute Assessment and Plan: Patient with history of COPD and former heavy smoker (quit several years ago). He has increased dyspnea and diffuse wheezing. Previously noted yellow sputum production that he notes is improving. Begin IV solumedrol Continue albuterol as above Supportive care as above. (4) Sepsis: Code(s): A41.9 - Sepsis, unspecified organism Status: Acute Assessment and Plan: Present on admission evident by tachycardia and leukocytosis. Patient is afebrile. Lactic 1.3. Suspected source of infection is pneumonia. Tachycardia has improved. Continue IV antibiotics Monitor vital signs closely Await blood cultures. (5) COVID-19 ruled out: Code(s): Z03.818 - Encounter for observation for suspected exposure to other biological agents ruled out Status: Acute Assessment and Plan: Tested negative on 06/18/2020. Isolation precautions discontinued. (6) Diarrhea: Code(s): R19.7 - Diarrhea, unspecified Status: Acute Assessment and Plan: Will send stool for c diff. Additional Plan Will stool for c diff. Getting better, possible dc in am. Subjective Date/time seen: 06/21/20 11:00 Interval history: Patient was seen during the morning rounds today. Mild sob, no chest pain, mood stable. Diarrhea is better. No new complaints Review of Systems Review of Systems: All systems reviewed & are unremarkable except as noted in HPI and below Exam Narrative: Exam Narrative: Mr. Mead is a well-nourished, well-appearing 75-year-old male who is lying supine in bed. He appears comfortable and is in NARD. HR 106, BP 131/74, RR 22, T 97.8?, 96% on 3 L Neuro: awake, alert and oriented x4, speech clear, no focal neuro deficits noted HEENMT: normocephalic, atraumatic, EOMI, sclerae anicteric, moist oral mucosa, tongue midline, nares patent Neck: supple, no lymphadenopathy Respiratory: Diffuse inspiratory and expiratory wheezing (L>R), no crackles or rhonchi, nonlabored breathing, occasional dry cough noted on exam Cardio: regular rate, regular rhythm with S1-S2 Abdomen: nondistended, normoactive bowel sounds, soft, nontender to palpation, no r
[2020-06-21] MEDS: CALCIUM CARBONATE (TUMS) 500 MG (200 MG ELEMENTAL) PO (12:16)
[2020-06-22] VITALS (10 sets, daily range): BP systolic 149–164; BP diastolic 74–81; PULSE 64–91; RESP 18–20; TEMP 34.7–36.6; O2SAT 94–96
[2020-06-22] MEDS: IPRATROPIUM BR 0.02% INH SOLN 0.5 MG/2.5 ML VIAL INHALATION ×2 (01:51→13:40)
[2020-06-22] MEDS: ALBUTEROL SULFATE NEB 2.5 MG/0.5 ML INH 5 MG INHALATION ×2 (01:51→13:40)
[2020-06-22 06:16] LABS: Basophils Percent Auto 0.3 % (0.2-1.2); Hematocrit 39.7 % (42.0-52.0); Hemoglobin 13.2 g/dL (14.0-18.0); Immature Granulocyte Absolute 0.13 K/mm3 (0.00-0.031); Immature Granulocyte Percent A 1.7 % (0-0.5); Lymphocytes Absolute Auto 0.38 K/mm3 (0.9-3.2); Lymphocytes Percent Auto 4.9 % (18.3-44.2); Mean Corpuscular HGB Conc 33.2 g/dl (32-36); Mean Corpuscular Hemoglobin 29.1 pg (26-34); Mean Corpuscular Volume 87.6 fl (80-100); Mean Platelet Volume 10.1 fl (7.4-10.4); Monocytes Absolute Auto 0.3 K/mm3 (0.1-0.6); Monocytes Percent Auto 4.2 % (2.6-8.5); Neutrophils Percent Auto 88.9 % (45.5-73.1); Platelet Count Result 172 k/mm3 (150-375); Red Blood Count 4.53 M/mm3 (4.6-6.20); Red Cell Distribution Width 12.2 % (11.5-14.5); White Blood Count 7.8 K/mm3 (4.5-10.0)
[2020-06-22] MEDS: metroNIDAZOLE 250 MG TABLET 500 MG PO ×4 (06:22→23:40)
[2020-06-22] MEDS: methylPREDNISolone SOD SUCC 125 MG VIAL 60 MG IV PUSH ×4 (06:22→23:41)
[2020-06-22 06:34] LABS: Alanine Aminotransferase 21 U/L (4-50); Albumin Level 3.7 g/dL (3.5-5.1); Alkaline Phosphatase 79 U/L (38-126); Anion Gap 4 mmol/L (8-16); Aspartate Amino Transferase 22 U/L (17-59); Bilirubin,Total 0.4 mg/dL (0.2-1.3); Blood Urea Nitrogen 24 mg/dL (9-20); CRP 1.5 mg/dL (<1.0); Calcium 9.5 mg/dL (8.4-10.2); Carbon Dioxide 35 mmol/L (22-30); Chloride 96 mmol/L (98-107); Estimated CRCL calculation 55 ml/min; Estimated Glomerular Filt Rate > 60; Glucose 118 mg/dL (75-110); Potassium 4.4 mmol/L (3.4-5.0); Sodium 135 mmol/L (137-145)
--- NOTE | 2020-06-22 09:05 | PC.NURSE ---
Pt transfered to [facility] room 221. Per wheelchair. Report called to Louise BUSBY.
[2020-06-22] MEDS: guaiFENesin 12 HR 600 MG TABCR PO ×2 (09:58→21:20)
[2020-06-22] MEDS: ENOXAPARIN 80 MG/0.8 ML SYRINGE 75 MG SUB-Q ×2 (09:59→21:20)
[2020-06-22] MEDS: DOXAZOSIN MESYLATE 4 MG TABLET PO (10:01)
--- NOTE | 2020-06-22 10:49 | PC.NURSE ---
Mr. Mead transferred from room 312 to 221-2. At time of transfer patient alert and oriented X3, pt on 2L of O2 per NC. Pt independent with walking. VSS, pt oriented to room, call perry and rapid response team. Safety precautions initiated, assessment performed.
--- NOTE | 2020-06-22 15:52 | PC.NURSE ---
Dr. Rodrigues present and suggested decreasing O2 to 1 L-will monitor Sat.
--- NOTE | 2020-06-22 17:14 | PM.IMPN ---
Progress Note: A&P Assessment and Plan (1) Acute and chronic respiratory failure: Code(s): J96.20 - Acute and chronic respiratory failure, unspecified whether with hypoxia or hypercapnia Status: Acute Assessment and Plan: CTA negative for PE. Continue supplemental O2 as needed with goal saturation 90% or above. Wean to goal. Continue with treatment for pneumonia and COPD as noted below (2) Pneumonia: Qualifiers: Laterality: bilateral Lung location: unspecified part of lung Pneumonia type: due to unspecified organism Qualified Code(s): J18.9 - Pneumonia, unspecified organism Code(s): J18.9 - Pneumonia, unspecified organism Status: Acute Assessment and Plan: Continue IV Rocephin and azithromycin Will check sputum culture Blood cultures pending and will be monitored Check pneumococcal and Legionella urinary Supportive care to include bronchodilators expectorants, antipyretics (3) COPD (chronic obstructive pulmonary disease): Qualifiers: COPD type: emphysema Emphysema type: unspecified Qualified Code(s): J43.9 - Emphysema, unspecified Code(s): J44.9 - Chronic obstructive pulmonary disease, unspecified Status: Acute Assessment and Plan: Begin IV solumedrol Continue albuterol as above Supportive care as above. (4) Sepsis: Code(s): A41.9 - Sepsis, unspecified organism Status: Acute Assessment and Plan: Continue IV antibiotics Monitor vital signs closely Await blood cultures. (5) COVID-19 ruled out: Code(s): Z03.818 - Encounter for observation for suspected exposure to other biological agents ruled out Status: Acute Assessment and Plan: Tested negative on 06/18/2020. Isolation precautions discontinued. (6) Diarrhea: Code(s): R19.7 - Diarrhea, unspecified Status: Acute Assessment and Plan: Will send stool for c diff. Subjective Date/time seen: 06/22/20 17:14 Interval history: Pt is doing better mild cough only Review of Systems Review of Systems: All systems reviewed & are unremarkable except as noted in HPI and below Exam Narrative: Exam Narrative: General: wel man Neuro: awake, alert and oriented x4, HEENMT: normocephalic Neck: supple, no lymphadenopathy Respiratory: decreased BS BL no added sounds Cardio: regular rate, regular rhythm with S1-S2 Abdomen: nondistended, normoactive bowel sounds, soft, nontender to palpation, no rigidity or guarding Extremities: no edema, erythema, cyanosis, clubbing, or tenderness to palpation, DP pulses 2+ bilaterally Skin: no rashes or lesions, warm and dry Psych: appropriate mood and affect, judgment and insight intact Objective Data Vital Signs Vital Signs: Vital Signs - 24 hr 06/21/20 20:00 06/21/20 20:18 06/21/20 20:27 Temperature Pulse Rate 86 86 Respiratory Rate 18 18 Blood Pressure Pulse Oximetry 93 93 06/21/20 22:00 06/22/20 01:51 06/22/20 01:59 Temperature 36.7 C Pulse Rate 75 91 85 Respiratory Rate 20 18 18 Blood Pressure 149/83 H Pulse Oximetry 93 06/22/20 05:58 06/22/20 09:30 06/22/20 10:25 Temperature 36.3 C L 36.6 C Pulse Rate 70 81 81 Respiratory Rate 20 20 20 Blood Pressure 158/81 H 161/76 H Pulse Oximetry 94 94 94 06/22/20 13:42 06/22/20 13:50 06/22/20 14:11 Temperature 34.7 C L Pulse Rate 85 83 82 Respiratory Rate 20 20 18 Blood Pressure 164/74 H Pulse Oximetry 96 Intake/Output Intake/Output: Intake & Output 06/19/20 06/20/20 06/21/20 06/22/20 23:59 23:59 23:59 23:59 Intake Total 1920 1920 2160 1230 Output Total 1025 1150 Balance 469 203 1455 1230 Meds/Results Medications: Active Medications Generic Name Dose Route Start Last Admin Trade Name Freq PRN Reason Stop Dose Admin Acetaminophen 650 mg 06/18/20 13:33 Acetaminophen 325 Mg Tablet PO Q4H PRN Mild Pain (1-3) or Fe
[2020-06-23] VITALS (9 sets, daily range): BP systolic 139–151; BP diastolic 78–80; PULSE 68–80; RESP 18–20; TEMP 36.4–36.6; O2SAT 90–93
[2020-06-23] MEDS: ALBUTEROL SULFATE NEB 2.5 MG/0.5 ML INH 5 MG INHALATION ×3 (02:18→14:55)
[2020-06-23] MEDS: IPRATROPIUM BR 0.02% INH SOLN 0.5 MG/2.5 ML VIAL INHALATION ×3 (02:18→14:55)
[2020-06-23 05:24] LABS: Basophils Percent Auto 0.6 % (0.2-1.2); Hematocrit 40.8 % (42.0-52.0); Hemoglobin 13.7 g/dL (14.0-18.0); Immature Granulocyte Percent A 3.2 % (0-0.5); Lymphocytes Absolute Auto 0.37 K/mm3 (0.9-3.2); Lymphocytes Percent Auto 5.9 % (18.3-44.2); Mean Corpuscular HGB Conc 33.6 g/dl (32-36); Mean Corpuscular Hemoglobin 28.7 pg (26-34); Mean Corpuscular Volume 85.5 fl (80-100); Mean Platelet Volume 10.2 fl (7.4-10.4); Monocytes Absolute Auto 0.4 K/mm3 (0.1-0.6); Monocytes Percent Auto 5.6 % (2.6-8.5); Neutrophils Absolute Auto 5.3 K/mm3 (1.3-6.7); Neutrophils Percent Auto 84.7 % (45.5-73.1); Platelet Count Result 173 k/mm3 (150-375); Red Blood Count 4.77 M/mm3 (4.6-6.20); Red Cell Distribution Width 11.9 % (11.5-14.5); White Blood Count 6.3 K/mm3 (4.5-10.0)
[2020-06-23 05:48] LABS: Alanine Aminotransferase 24 U/L (4-50); Albumin Level 3.6 g/dL (3.5-5.1); Alkaline Phosphatase 79 U/L (38-126); Anion Gap 0 mmol/L (8-16); Aspartate Amino Transferase 28 U/L (17-59); Bilirubin,Total 0.5 mg/dL (0.2-1.3); Blood Urea Nitrogen 27 mg/dL (9-20); Calcium 9.3 mg/dL (8.4-10.2); Carbon Dioxide 37 mmol/L (22-30); Chloride 97 mmol/L (98-107); Estimated CRCL calculation 60 ml/min; Estimated Glomerular Filt Rate > 60; Glucose 133 mg/dL (75-110); Potassium 4.3 mmol/L (3.4-5.0); Sodium 134 mmol/L (137-145)
[2020-06-23] MEDS: metroNIDAZOLE 250 MG TABLET 500 MG PO ×2 (06:08→12:12)
[2020-06-23] MEDS: methylPREDNISolone SOD SUCC 125 MG VIAL 60 MG IV PUSH ×2 (06:09→12:12)
[2020-06-23] MEDS: guaiFENesin 12 HR 600 MG TABCR PO (08:05)
[2020-06-23] MEDS: ENOXAPARIN 80 MG/0.8 ML SYRINGE 75 MG SUB-Q (08:05)
[2020-06-23] MEDS: DOXAZOSIN MESYLATE 4 MG TABLET PO (09:12)
--- NOTE | 2020-06-23 15:39 | PM.DS ---
DS: Admitting Diagnosis Admitting Diagnosis Admitting Diagnosis: SOB DS: Discharge Diagnosis Discharge Diagnosis (1) Acute and chronic respiratory failure: Code(s): J96.20 - Acute and chronic respiratory failure, unspecified whether with hypoxia or hypercapnia Status: Acute Assessment and Plan: CTA negative for PE. Continue supplemental O2 as needed with goal saturation 90% or above. Wean to goal. Continue with treatment for pneumonia and COPD as noted below (2) Pneumonia: Qualifiers: Laterality: bilateral Lung location: unspecified part of lung Pneumonia type: due to unspecified organism Qualified Code(s): J18.9 - Pneumonia, unspecified organism Code(s): J18.9 - Pneumonia, unspecified organism Status: Acute Assessment and Plan: Continue IV Rocephin and azithromycin BC is negative (3) COPD (chronic obstructive pulmonary disease): Qualifiers: COPD type: emphysema Emphysema type: unspecified Qualified Code(s): J43.9 - Emphysema, unspecified Code(s): J44.9 - Chronic obstructive pulmonary disease, unspecified Status: Acute Assessment and Plan: Begin IV solumedrol in hospital Continue albuterol as above Supportive care as above. continue prednisone and zithromax at home. (4) Sepsis: Code(s): A41.9 - Sepsis, unspecified organism Status: Resolved Assessment and Plan: Continue IV antibiotics Monitor vital signs closely resolved (5) COVID-19 ruled out: Code(s): Z03.818 - Encounter for observation for suspected exposure to other biological agents ruled out Status: Acute Assessment and Plan: Tested negative on 06/18/2020. Isolation precautions discontinued. (6) Diarrhea: Code(s): R19.7 - Diarrhea, unspecified Status: Acute Assessment and Plan: Will send stool for c diff which is negative, pt denies any diarrhea on discharge DS: Summary Hospital Course Hospital Course: 5 year old male with past medical history of COPD with chronic respiratory failure on home oxygen will need patient states that he had been coughing and shortness of breath and he went to see his primary care doctor today while in the office patient was quite hypoxic on room air he was desatting an 88% patient was to emergency department for further evaluation patient had a chest x-ray which is suspicious for pneumonia and patient was started on Rocephin azithromycin, patient also concern COVID-19, which was negative. Pt treated for pneumonia and discharged. CXr was repeated and looked better, BC was negative, Wcc were normal. pt felt better and was dc on zithromax dose pack and prednisone tapering dose for 60 days as he still appeared wheezy on discharge. Time Spent with Patient Time attestation: Total time spent providing and/or coordinating discharge services:40 minutes on day of discharge Exam Narrative: Exam Narrative: General: well man Neuro: awake, alert and oriented x4, HEENMT: normocephalic Neck: supple, no lymphadenopathy Respiratory: decreased BS BL no added sounds Cardio: regular rate, regular rhythm with S1-S2 Abdomen: nondistended, normoactive bowel sounds, soft, nontender to palpation, no rigidity or guarding Extremities: no edema, erythema, cyanosis, clubbing, or tenderness to palpation, DP pulses 2+ bilaterally Skin: no rashes or lesions, warm and dry Psych: appropriate mood and affect, judgment and insight intact DS: Data Data Completed and Pending Labs on day of discharge: Labs from last 24 hours 06/23/20 06/23/20 04:50 04:50 WBC 6.3 RBC 4.77 Hgb 13.7 L Hct 40.8 L MCV 85.5 MCH 28.7 MCHC 33.6 RDW 11.9 Plt Count 173 MPV 10.2 Immature Gran % (Auto) 3.2 H Neut % (Auto) 84.7 H Lymph % (Auto) 5.9 L [place] % (Auto) 5.6 Eos % (Auto) 0.0 Baso % (Auto) 0.6 Lymph # (Auto) 0.37 L [place] # (Auto) 0.4 Eos # (Au
[2020-06-23 16:15] LABS: Pneumococcal Antigen Urine Not Detected (Not Detected)
[2020-06-24 20:22] LABS: Legionella pneumophila Ag Ur Not Detected (Not Detected)
== END 2020-06-23 16:29 | disposition home or self-care (01) | DRG 871 ==
LOC: ANHED 13:39 → ANH3MEDSUR 06-19 07:22 → ANHTRC 06-23 15:37 → ANH3MEDSUR 06-25 16:39 → ANHTRC 06-25 16:39
PROVIDERS: Emergency Medicine; Family Medicine; Admitting Provider Internal Medicine; Emergency Provider Emergency Medicine; PCP Family Medicine; Visit Provider Physician Assistant
DX: A41.9 Sepsis, unspecified organism (principal); J18.9 Pneumonia, unspecified organism; J96.21 Acute and chronic respiratory failure with hypoxia; Z99.81 Dependence on supplemental oxygen; J43.9 Emphysema, unspecified; Z20.828 Contact with and (suspected) exposure to other viral communicable diseases; R19.7 Diarrhea, unspecified; M54.9 Dorsalgia, unspecified; G89.29 Other chronic pain; K21.9 Gastro-esophageal reflux disease without esophagitis; M19.90 Unspecified osteoarthritis, unspecified site; N40.0 Benign prostatic hyperplasia without lower urinary tract symptoms; Z79.899 Other long term (current) drug therapy; Z85.46 Personal history of malignant neoplasm of prostate; Z85.51 Personal history of malignant neoplasm of bladder; Z87.11 Personal history of peptic ulcer disease; Z87.891 Personal history of nicotine dependence
CPT/HCPCS: 36415; 36600; 71045; 71046; 71275; 80048; 80053; 82375; 82805; 83050; 83605; 83880; 84484; 85025; 85380; 86140; 87040; 87324; 87449; 87493; 87635; 87899; 93005; 93970; 94640; 96361; 96365; 96367; 96375; 99291; A9270; C9803; J0456; J0696; J1650; J2930; J3475; J7040; Q9967; U0003

== ENCOUNTER 2022-06-15 13:01 | Inpatient (IN) | payer MEDICARE, OTHER, SELFPAY ==
[2022-06-15] VITALS (8 sets, daily range): BP systolic 112–142; BP diastolic 61–72; PULSE 88–116; RESP 13–20; TEMP 36.5–36.6; O2SAT 89–98; BMI 25.4
--- NOTE | ~2022-06-15 | XR_ITS ---
EXAMINATION: XR chest 2V DATE: 06/15/2022 14:16 INDICATION: Hypertension. Palpitations. TECHNIQUE: PA and lateral views of the chest were obtained. COMPARISON: Chest radiograph dated 06/23/[address] dated 06/19/2020 FINDINGS: Increased lucency and architectural distortion in the bilateral mid to upper lung zones and bronchova scular crowding in the lower lung zones consistent with upper lung predominant emphysema. Airspace op acities in the left mid and lower lung zones concerning for pneumonia with differential including asy mmetric pulmonary edema. Lingular atelectasis/scarring along side a small left pericardial fat pad. N o pleural effusion or pneumothorax. The cardiomediastinal silhouette is normal. Mild thoracic dextroc urvature with moderate spondylosis. IMPRESSION: 1. Opacities in the left mid and lower lung zones which in the acute setting are concerning for pneum onia or less likely asymmetric pulmonary edema. Recommend radiographic follow-up to resolution as dif ferential for more chronic opacities would include lymphangitic carcinomatosis or other chronic inter stitial lung disease. Reviewed, dictated and finalized at location A. WELL LOGGER IMPRESSION: 1. Opacities in the left mid and lower lung zones which in the acute setting ar e concerning for pneumonia or less likely asymmetric pulmonary edema. Recommend radiographic follow-up to resolution as differential for more chronic opacitie s would include lymphangitic carcinomatosis or other chronic interstitial lung disease.
--- NOTE | 2022-06-15 13:04 | ECG_ITS ---
Measurements Intervals [place] Rate: 107 P: 64 MO: 131 QRS: 68 QRSD: 85 T: 63 QT: 329 QTc: 440 Interpretive Statements SINUS TACHYCARDIA POSSIBLE LEFT ATRIAL ENLARGEMENT [-0.1mV P WAVE IN V1/V2] BASELINE ARTIFACT PRESENT NONSPECIFIC ST AND T WAVE ABNORMALITY COMPARED TO ECG 06/18/2020 11:33:14 NO SIGNIFICANT CHANGES Electronically Signed On 06-15-2022 15:16:36 TIE TAPE MACHINE OPERATOR by Carmita Augustine M.D.
[2022-06-15 13:47] LABS: Basophils Percent Auto 0.3 % (0.2-1.2); Eosinophils Percent Auto 0.2 % (0-4.4); Hematocrit 40.1 % (42.0-52.0); Hemoglobin 13.1 g/dL (14.0-18.0); Immature Granulocyte Absolute 0.03 K/mm3 (0.00-0.031); Immature Granulocyte Percent A 0.3 % (0-0.5); Lymphocytes Absolute Auto 0.29 K/mm3 (0.9-3.2); Lymphocytes Percent Auto 2.4 % (18.3-44.2); Mean Corpuscular HGB Conc 32.7 g/dl (32-36); Mean Corpuscular Hemoglobin 28.6 pg (26-34); Mean Corpuscular Volume 87.6 fl (80-100); Mean Platelet Volume 9.8 fl (7.4-10.4); Monocytes Absolute Auto 0.7 K/mm3 (0.1-0.6); Monocytes Percent Auto 6.1 % (2.6-8.5); Neutrophils Absolute Auto 10.7 K/mm3 (1.3-6.7); Neutrophils Percent Auto 90.7 % (45.5-73.1); Platelet Count Result 164 k/mm3 (150-375); Red Blood Count 4.58 M/mm3 (4.6-6.20); Red Cell Distribution Width 13.1 % (11.5-14.5); White Blood Count 11.8 K/mm3 (4.5-10.0)
[2022-06-15 14:02] LABS: Alanine Aminotransferase 22 U/L (6-50); Alkaline Phosphatase 91 U/L (38-126); Anion Gap 5 mmol/L (8-16); Aspartate Amino Transferase 27 U/L (17-59); Bilirubin,Total 0.5 mg/dL (0.2-1.3); Blood Urea Nitrogen 21 mg/dL (9-20); Calcium 8.9 mg/dL (8.4-10.2); Carbon Dioxide 27 mmol/L (22-30); Chloride 106 mmol/L (98-107); Estimated CRCL calculation 53 ml/min; Estimated Glomerular Filt Rate > 60; Glucose 128 mg/dL (65-110); Lipase 60 U/L (23-300); Potassium 4.2 mmol/L (3.4-5.0); Sodium 138 mmol/L (137-145)
[2022-06-15 14:11] LABS: Partial Thromboplastin Time 25.5 SECONDS (22.3-36.8)
[2022-06-15 14:13] LABS: Troponin I < 0.012 ng/mL (0.000-0.034)
[2022-06-15 14:24] LABS: Influenza A QL RT-PCR Negative (Negative); Influenza B QL RT-PCR Negative (Negative); SARS-CoV-2 RNA PCR Negative
--- NOTE | 2022-06-15 15:50 | ED.GENADULT ---
HPI - General Adult General Chief complaint: Arrhythmia/Palpitations Stated complaint: increased heart rate, weakness Time Seen by Provider: 06/15/22 15:47 Source: patient Mode of arrival: EMS Limitations: no limitations History of Present Illness HPI narrative: 77 years old white male came from home by ambulance because of feeling of center started early today, resolved on arrival to the emergency room. This happened while patient tried to take care of his dog. History of COPD on oxygen 2 L/min at night only. Patient noticed that his oxygen is running at 83 by home pulse oximetry and his heart rate was fast. Currently patient is asymptomatic, denying any fever, chills, nausea, vomiting, chest pain, shortness of breath, focal neurodeficit. Related Data Home Medications Medication Instructions Recorded Confirmed calcium carbonate 600 mg-vitamin 1 tablet PO QAM 10/13/19 06/15/22 D3 20 mcg (800 unit) chewable tablet (Caltrate 600 plus D) doxazosin 4 mg tablet 4 mg PO QPM 10/13/19 06/15/22 famotidine 40 mg tablet 40 mg PO QHS PRN Acid Reflux 06/15/22 06/15/22 ferrous sulfate 325 mg (65 mg 325 mg PO DAILY 06/15/22 06/15/22 iron) tablet (Iron (ferrous sulfate)) fluticasone furoate 200 1 inh inhalation QAM 06/15/22 06/15/22 mcg-vilanterol 25 mcg/dose inhalation powder (Breo Ellipta) melatonin 10 mg tablet 10 mg PO HS PRN Insomnia 06/15/22 06/15/22 multivitamin with minerals-folic 80 tablet PO QAM 06/15/22 06/15/22 acid 80 mcg chewable tablet Allergies Allergy/AdvReac Type Severity Reaction Status Date / Time No Known Allergies Allergy Verified 05/16/22 07:31 Review of Systems Review of Systems: All systems reviewed & are unremarkable except as noted in HPI and below PMFSH Past Medical History Medical History (Updated 06/15/22 @ 22:56 by Korin Osei PA-C) Benign prostatic hyperplasia Bladder cancer Status post TURBT in 2015. Chronic back pain For which he takes gabapentin. Chronic obstructive pulmonary disease Former smoker 1.5 packs per day for 40 years, quit in 2006. Gastroesophageal reflux disease Mixed hyperlipidemia Osteoarthritis Peptic ulcer (1995) Prostate cancer Status post radiation in 2016. Surgical History Surgical History History of arthroscopic knee surgery History of bladder surgery TURBT in 2016. History of laparotomy Related to what sounds like peptic or duodenal ulcer, and 1996. Family History Family History Mother History of blood clots Leukemia Sibling Prostate carcinoma Social History Social History Social History: The patient is and lives with his in [place]. 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 He designates his , Hannah, as his surrogate decision maker and he wishes to be a full code. He smokes 1.5 packs of cigarettes per day for about 45 years, and quit in 2006. He denies alcohol and drug abuse. Smoking packs per day: 1.5 Smoking cigarettes per day: 30.0 Years smoked: 45 Smoking pack-years: 67.50 Smoking status: Former smoker Tobacco type: cigarettes Second hand tobacco smoke exposure: No Smoking end date: 02/23/07 Alcohol intake: current Drinks per week: 5 Substance use: never Lack of Transportation: No Lack of Food: Never True Current Housing: I Have Housing Concerned About Future Housing: No Difficulty Paying Gas/Electric Bills: No Difficulty Paying for Meds: No Currently Unemployed: No Education: High School Diploma/GED Difficulty w/ Childcare or Family Care: No Spiritual care concerns: No Agree to blood products: Yes Exam Narrative: General appearance: Well-developed, well-nourished. No family member at the bedside. Patient was able to get out of bed and walk around in the emergency room wit
[2022-06-15 16:34] LABS: Troponin I 0.013 ng/mL (0.000-0.034)
[2022-06-15 16:42] LABS: D Dimer 1.06 ug/mL (<0.48)
[2022-06-15 16:53] LABS: Alveolar/Arterial O2 Gradient 42.7 mmHg; Device ROOM AIR; Fractional Inspired Oxygen 21 %; HCO3 ABG 24.5 mEq/l (22.0-26.0); Modified Allen's Test Pass; Oxygen Content ABG 16.9 %vol (16.0-22.0); Oxygen Saturation ABG 91.2 % (95.0-100.0); Oxyhemoglobin 89.2 % THb (90.0-100.0); PCO2 ABG 39.5 mmHg (35.0-45.0); PO2 ABG 59.7 mmHg (80.0-100.0); PO2 FiO2 Ratio Arterial Blood 2.84 %; Site Drawn RIGHT RADIAL; Total Hemoglobin 13.5 g/dL (12.0-18.0)
[2022-06-15 17:26] LABS: Appearance Urine Clear (Clear); Bilirubin Urine 1+ (Negative); Blood Urine Negative (Negative); Color Urine Yellow (Yellow); Glucose Urine UA Negative (Negative); Ketones Urine Negative (Negative); Leukocyte Esterase Ur Negative LEU/UL (Negative); Nitrate Urine Negative (Negative); Protein Urine Negative (Negative); Urobilinogen Urine 0.2 mg/dL (<2.0)
[2022-06-15 17:43] LABS: Influenza A QL RT-PCR Negative (Negative); Influenza B QL RT-PCR Negative (Negative); SARS-CoV-2 RNA PCR Negative
[2022-06-15 17:57] LABS: Bacteria Urine Trace /hpf; Calcium Oxalate Crystals Urine Present /hpf; Mucus Urine Rare /lpf; RBC Urine 21-50 /hpf (0-2)
[2022-06-15 17:58] LABS: Add Urine Microscopic? YES
--- NOTE | 2022-06-15 18:00 | PM.IMHP ---
H&P: HPI History of Present Illness Date/Time: 06/15/22 18:00 Chief Complaint: Shortness of breath. Narrative: This is a 77-year-old male with COPD, chronic respiratory failure on 2 liters at nighttime only, GERD with history of peptic ulcer, and both history of prostate and bladder cancer presented to the emergency department via EMS from home for evaluation of shortness of breath. He felt fine when he went to bed last night and his dog woke him up at around 06:00 as per usual to go to the bathroom. As he stood up he had a brief, fleeting sharp shooting pain into his left jaw and feelings of disorientation and shortness of breath. He felt as though he was not able to get in a deep breath. His took his vital signs at that time and he reports that his heart rate was between 115 and 120 and his SpO2 was reportedly 85% on room air. He was afebrile on arrival to the emergency department and at this time he is on 2 liters nasal cannula with stable oxygen saturations. Labs in the emergency department a relatively unremarkable aside from a mild leukocytosis with a WBC of 11.8. He was negative for influenza a and SARS-CoV-2 by PCR. Chest x-ray showed opacities in the left mid lung zones concerning for pneumonia and he is being admitted in this setting. At the time my evaluation he seems to be feeling better and he has no specific complaints. He denies fever, chills, sweats, headache, sinus congestion, chest pain, pleuritic pain, nausea, vomiting, and diarrhea. He has no known sick contacts. Review of Systems Review of Systems: Twelve systems were reviewed and are negative except for as per HPI. [facility] Past Medical History Medical History (Updated 06/15/22 @ 22:56 by Korin Osei PA-C) Benign prostatic hyperplasia Bladder cancer Status post TURBT in 2016. Chronic back pain For which he takes gabapentin. Chronic obstructive pulmonary disease Former smoker 1.5 packs per day for 40 years, quit in 2006. Gastroesophageal reflux disease Mixed hyperlipidemia Osteoarthritis Peptic ulcer (1995) Prostate cancer Status post radiation in 2016. Surgical History Surgical History History of arthroscopic knee surgery History of bladder surgery TURBT in 2016. History of laparotomy Related to what sounds like peptic or duodenal ulcer, and 1995. Family History Family History Mother History of blood clots Leukemia Sibling Prostate carcinoma Social History Social History Social History: The patient is and lives with his in [place]. 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 He designates his , Hannah, as his surrogate decision maker and he wishes to be a full code. He smokes 1.5 packs of cigarettes per day for about 45 years, and quit in 2006. He denies alcohol and drug abuse. Smoking packs per day: 1.5 Smoking cigarettes per day: 30.0 Years smoked: 45 Smoking pack-years: 67.50 Smoking status: Former smoker Tobacco type: cigarettes Second hand tobacco smoke exposure: No Smoking end date: 02/23/07 Alcohol intake: current Drinks per week: 5 Substance use: never Lack of Transportation: No Lack of Food: Never True Current Housing: I Have Housing Concerned About Future Housing: No Difficulty Paying Gas/Electric Bills: No Difficulty Paying for Meds: No Currently Unemployed: No Education: High School Diploma/GED Difficulty w/ Childcare or Family Care: No Spiritual care concerns: No Agree to blood products: Yes Meds Home Medications and Allergies Home Medications Medication Instructions Recorded Confirmed Type calcium carbonate 600 mg-vitamin 1 tablet PO QAM 10/13/19 06/15/22 History D3 20 mcg (800 unit) chewable tablet (Caltrate 600 plus D) doxazosin 4 mg tablet 4 mg PO QPM 10/13/19
[2022-06-15] MEDS: IPRATROPIUM BR 0.02% INH SOLN 0.5 MG/2.5 ML VIAL INHALATION (18:06)
[2022-06-15] MEDS: ALBUTEROL SULFATE NEB 2.5 MG/3 ML INH INHALATION (18:06)
[2022-06-15 19:45] LABS: Troponin I < 0.012 ng/mL (0.000-0.034)
[2022-06-15] MEDS: methylPREDNISolone SOD SUCC 125 MG VIAL IV PUSH (20:24)
[2022-06-16] VITALS (12 sets, daily range): BP systolic 138–142; BP diastolic 64–66; PULSE 94–114; RESP 16–20; TEMP 36.6–36.7; O2SAT 86–95
--- NOTE | 2022-06-16 00:04 | PCRCNOTE ---
Window of time for administration has passed. See next scheduled administration.
[2022-06-16] MEDS: DOXAZOSIN MESYLATE 4 MG TABLET PO (00:46)
[2022-06-16] MEDS: methylPREDNISolone SOD SUCC 125 MG VIAL 60 MG IV PUSH ×3 (00:47→12:49)
[2022-06-16] MEDS: FAMOTIDINE 20 MG TABLET 40 MG PO (05:03)
[2022-06-16 06:02] LABS: Hematocrit 37.5 % (42.0-52.0); Hemoglobin 12.4 g/dL (14.0-18.0); Mean Corpuscular HGB Conc 33.1 g/dl (32-36); Mean Corpuscular Hemoglobin 28.4 pg (26-34); Mean Platelet Volume 10.3 fl (7.4-10.4); Platelet Count Result 166 k/mm3 (150-375); Red Blood Count 4.36 M/mm3 (4.6-6.20); Red Cell Distribution Width 12.9 % (11.5-14.5); White Blood Count 12.6 K/mm3 (4.5-10.0)
[2022-06-16 06:17] LABS: Anion Gap 7 mmol/L (8-16); Blood Urea Nitrogen 22 mg/dL (9-20); Carbon Dioxide 26 mmol/L (22-30); Chloride 103 mmol/L (98-107); Estimated CRCL calculation 58 ml/min; Estimated Glomerular Filt Rate > 60; Glucose 155 mg/dL (65-110); Magnesium 1.7 mg/dL (1.6-2.3); Sodium 136 mmol/L (137-145)
[2022-06-16] MEDS: FERROUS SULFATE 324 MG TABLET PO (09:43)
[2022-06-16] MEDS: THERAPEUTIC MULTIVITAMINS/MINERALS TAB (*BKC) 1 TABLET PO (09:43)
[2022-06-16] MEDS: ENOXAPARIN 40 MG/0.4 ML SYRINGE SUB-Q (09:44)
[2022-06-16] MEDS: IPRATROPIUM BR 0.02% INH SOLN 0.5 MG/2.5 ML VIAL INHALATION ×2 (10:21→15:42)
[2022-06-16] MEDS: FLUTICASONE/SALMETEROL 230-21 MCG INHALER 1 PUFF 2 PUFF INHALATION (10:22)
[2022-06-16] MEDS: ALBUTEROL SULFATE NEB 2.5 MG/3 ML INH 5 MG INHALATION ×2 (10:22→15:41)
--- NOTE | 2022-06-16 15:01 | PM.DS ---
DS: Admitting Diagnosis Discharge Date 06/16/2022 Admitting Diagnosis Pneumonia, COPD exacerbation DS: Discharge Diagnosis Discharge Diagnosis (1) Community acquired pneumonia: Code(s): J18.9 - Pneumonia, unspecified organism Status: Acute (2) Acute and chronic respiratory failure with hypoxia: Code(s): J96.21 - Acute and chronic respiratory failure with hypoxia Status: Acute (3) COPD exacerbation: Code(s): J44.1 - Chronic obstructive pulmonary disease with (acute) exacerbation Status: Acute DS: Summary Hospital Course Reason for hospitalization: Pneumonia, COPD exacerbation Hospital Course: 77-year-old male with a history of COPD, CHF and malignant neoplasm of the bladder. Patient presented to the ER due to shortness of breath and mental fog on 06/15/2022. This feeling had resolved by the time he had presented to the ER. Patient has a history of COPD is on 2 L oxygen at night at home. Patient did notice his oxygen running in the 80s at his home pulse ox is heart rate was elevated. Chest x-ray revealed opacities left mid and lower lung zones concerning for pneumonia. Hypoxia could be due to a combination of pneumonia and COPD exacerbation. Pulmonary embolism seems less likely. Patient started on azithromycin and ceftriaxone as well as Solu-Medrol and scheduled updrafts. Sputum to be attempted for culture. Check urinary antigens as well. Vital signs have been stable. Patient urine revealed 7-9 wbc's, 21-50 rbc's and +1 bilirubin. Patient's urine sent for culture and will contact patient upon results if necessary. Patient also has history of bladder cancer in this could be contributing to the RBCs present. Patient had elevated D-dimer that is most likely contributing to COPD exacerbation plus pneumonia. Blood cultures no growth to date. Patient is feeling well and is ready to be discharged. Patient's vital signs are stable and he is maintaining O2 saturation on 2L. Discussed with patient that he will be contacted upon any changes in laboratory status is that will directly affect his care. Patient discharged on prednisone and Levaquin. Status at Discharge Functional status at discharge: independent ambulation Overall status at discharge: patient is progressing back to baseline Time Spent with Patient Time attestation: Total time spent providing and/or coordinating discharge services: Time spent: Greater than 30 minutes DS: Data Data Completed and Pending Labs on day of discharge: Labs from last 24 hours 12/02/2806/16/22 06/16/22 05:43 05:43 05:43 WBC 12.6 H RBC 4.36 L Hgb 12.4 L Hct 37.5 L MCV 86.0 MCH 28.4 MCHC 33.1 RDW 12.9 Plt Count 166 MPV 10.3 D-Dimer Puncture Site ABG pH ABG pCO2 ABG pO2 ABG PO2/FiO2 Ratio ABG HCO3 ABG O2 Saturation ABG O2 Content ABG Base Excess A-a Gradient Oxyhemoglobin Total Hemoglobin O2 Delivery Device O2 Liters/Min FiO2 Sodium 136 L Potassium 4.0 Chloride 103 Carbon Dioxide 26 Anion Gap 7 L BUN 22 H Creatinine 0.90 Estim Creat Clear Calc 58 Estimated GFR > 60 Glucose 155 H Calcium 9.0 Magnesium 1.7 Troponin I Urine Color Urine Appearance Urine pH Ur Specific [place] Urine Protein Urine Glucose (UA) Urine Ketones Ur Blood (Man) Urine Nitrate Urine Bilirubin Urine Urobilinogen Leukocyte Esterase Rfl Urine RBC Urine WBC Calcium Oxalate Crystal Urine Bacteria Urine Mucus Influenza A (RT-PCR) Influenza B (RT-PCR) Ur L.pneumophila Ag Mycoplasma pneumon IgM Pending SARS-CoV-2 RNA (RT-PCR) Urine Pneumococcal Ag 06/16/22 06/15/22 06/15/22 04:57 19:05 17:09 WBC RBC Hgb Hct MCV MCH MCHC RDW Plt Count MPV D-Dimer Puncture Site ABG pH ABG pCO2 ABG pO2 ABG PO2/FiO2 Ratio ABG HCO3
--- NOTE | 2022-06-16 15:45 | HOMEO2EVAL ---
Evaluation was performed at [facility] Home Oxygen Evaluation RC: Home Oxygen (O2) Evaluation Start: 06/16/22 15:21 Freq: ONCE Status: Active Protocol: RPE Activity Type Activity Date Activity User E-sign Co-sign Detail Recorded Client Recorded Date Recorded By Document 06/16/22 15:15 DJO [email or web address] 06/16/22 15:45 DJO Document 06/16/22 15:20 [email or web address] [email or web address] 06/16/22 15:45 DJO Document 06/16/22 15:25 [email or web address] [email or web address] 06/16/22 15:45 DJO Document 06/16/22 15:30 [email or web address] [email or web address] 06/16/22 15:45 DJO Document 06/16/22 15:45 [email or web address] [email or web address] 06/16/22 15:45 DJO 06/16/22 06/16/22 06/16/22 15:15 15:20 15:25 Home O2 Evaluation [Oxygen] -Test Phase Resting Exercise Exercise -Oxygen Delivery Room Air Room Air Nasal Cannula -Oxygen Flow Rate (L/min) 1 [Pulse Oximetry] -Pulse Oximetry (90-100 %) 90 86 L 88 L [Pulse Rate] -Pulse Rate (60-100 beats/min) 94 112 H 114 H [Evaluation] -Activity Tolerance [Exercise] -Ambulation Distance (feet) -Ambulation Distance (meters) [Charges] -Treatment Charges O2 Evaluation - Inpatient 06/16/22 06/16/22 15:30 15:45 Home O2 Evaluation [Oxygen] -Test Phase Exercise Resting -Oxygen Delivery Nasal Cannula Room Air -Oxygen Flow Rate (L/min) 2 [Pulse Oximetry] -Pulse Oximetry (90-100 %) 90 90 [Pulse Rate] -Pulse Rate (60-100 beats/min) 96 [Evaluation] -Activity Tolerance Good [Exercise] -Ambulation Distance (feet) 500 -Ambulation Distance (meters) 152.39 [Charges] -Treatment Charges
--- NOTE | 2022-06-16 15:54 | PCRCNOTE ---
HOME O2 EVAL COMPLETE, PT HAS NOC O2 WITH [facility]. TO BRING IN TANK FOR DISCHARGE. [facility] PHONE# [phone]
[2022-06-20 18:09] LABS: Legionella pneumophila Ag Ur Not Detected (Not Detected)
[2022-06-21 18:05] LABS: Mycoplasma IgM Antibody Titer 109 U/mL (<770)
--- NOTE | 2022-06-25 12:48 | PC.NURSE ---
Urine legionella pneumo Ag is negative. Mycoplasma pneumonia is WNL at 109.
== END 2022-06-16 17:30 | disposition home or self-care (01) | DRG 193 ==
LOC: ANHED 17:26 → ANH3MED 06-16 07:30 → ANH3MEDSUR 06-17 11:06
PROVIDERS: Physician Assistant; Admitting Provider Student in an Organized Health Care Education/Training Program; Emergency Provider Emergency Medicine; PCP Family Medicine; Visit Provider Internal Medicine Critical Care Medicine
DX: J18.9 Pneumonia, unspecified organism (principal); J96.21 Acute and chronic respiratory failure with hypoxia; J44.0 Chronic obstructive pulmonary disease with (acute) lower respiratory infection; J44.1 Chronic obstructive pulmonary disease with (acute) exacerbation; K21.9 Gastro-esophageal reflux disease without esophagitis; E78.5 Hyperlipidemia, unspecified; N40.0 Benign prostatic hyperplasia without lower urinary tract symptoms; M19.90 Unspecified osteoarthritis, unspecified site; M54.9 Dorsalgia, unspecified; G89.29 Other chronic pain; Z20.822 Contact with and (suspected) exposure to COVID-19; Z99.81 Dependence on supplemental oxygen; Z85.51 Personal history of malignant neoplasm of bladder; Z87.891 Personal history of nicotine dependence; Z87.11 Personal history of peptic ulcer disease; Z85.46 Personal history of malignant neoplasm of prostate
CPT/HCPCS: 36415; 36600; 71046; 80048; 80053; 81001; 82805; 83690; 83735; 84484; 85025; 85027; 85380; 85610; 85730; 86738; 87040; 87086; 87088; 87449; 87636; 87899; 93005; 94618; 94640; 99285; A9270; J0456; J0696; J1650; J2930

== ENCOUNTER → 2022-07-13 07:57 | Outpatient (CLI) | payer MEDICARE, OTHER, SELFPAY ==
--- NOTE | ~2022-07-13 | XR_ITS ---
Clinical Indication: Pneumonia PA and lateral views of the chest: Comparison: 06/15/2022 Findings: The lungs are clear, without evidence of focal consolidation or pleural effusion. Possible COPD or mild chronic interstitial disease. Cardiomediastinal silhouette is within normal limits. Bone s and soft tissues are unremarkable. Impression: No consolidation or pleural effusion. Possible COPD or minimal chronic interstitial disease. Reviewed, dictated and finalized at location . AULIC PRESS OPERATOR Impression: No consolidation or pleural effusion. Possible COPD or minimal chronic interstitial disease.
== END ==
PROVIDERS: PCP Family Medicine; Visit Provider Physician Assistant Medical
DX: J18.9 Pneumonia, unspecified organism (principal); R91.8 Other nonspecific abnormal finding of lung field
CPT/HCPCS: 71046

== ENCOUNTER → 2022-09-05 09:28 | Outpatient (CLI) | payer MEDICARE, OTHER, SELFPAY ==
--- NOTE | ~2022-09-05 | XR_ITS ---
XR chest 2V 09/05/2022 09:43 Indication: Dyspnea. Chronic obstructive pulmonary disease. Procedure: 2 view chest Comparison: Comparison to multiple prior studies sequentially, with oldest reviewed study dated 06/09. Findings: There are are unchanged coarse interstitial infiltrates bilaterally, consistent with inters titial fibrosis. Heart size normal. There are changes of hyperinflation, consistent with emphysema. N o significant effusion. No pneumothorax. There is evidence for chronic granulomatous disease. There i s a nodular density in the left mid thorax. Correlation with CT chest recommended. Impression: 1: Emphysema with superimposed chronic pulmonary fibrosis. 2: Nodular density left mid thorax. Correlation with CT chest recommended to exclude parenchymal nod ule. Reviewed, dictated and finalized at location B. GRINDING MACHINE OPERATOR Impression: 1: Emphysema with superimposed chronic pulmonary fibrosis. 2: Nodular density left mid thorax. Correlation with CT chest recommended to e xclude parenchymal nodule.
== END ==
PROVIDERS: PCP Family Medicine; Visit Provider Physician Assistant Medical
DX: J44.0 Chronic obstructive pulmonary disease with (acute) lower respiratory infection (principal); J44.1 Chronic obstructive pulmonary disease with (acute) exacerbation; R91.8 Other nonspecific abnormal finding of lung field
CPT/HCPCS: 71046

== ENCOUNTER 2022-09-10 08:54 | Outpatient (CLI) | payer MEDICARE, OTHER, SELFPAY ==
--- NOTE | ~2022-09-10 | CT_ITS ---
EXAMINATION: CT diagnostic chest w con DATE: 09/10/2022 09:49 INDICATION: Pulmonary fibrosis, lung nodule TECHNIQUE: Transaxial computed tomographic images of the chest were obtained after the administration of 75 cc of Omnipaque 350 intravenous contrast. The dose-length product (DLP) was 271.86 mGy-cm. Ite rative reconstruction was used. COMPARISON: 06/19/2020; chest radiograph dated 09/05/2022 FINDINGS: There is severe emphysema. No suspicious correlate is identified for the chest radiographic finding in question. There is a stable 4 mm nodule of the left lower lobe. There is mild dependent a telectasis of the lungs. No pleural effusion or pneumothorax. No pathologically enlarged thoracic lym ph nodes are identified. The heart size is normal. There is calcified coronary artery atherosclerosis . There is severe thoracic spondylosis. There is a 3.5 cm cyst of the left kidney. IMPRESSION: 1. No suspicious correlate identified for the chest radiographic finding in question. 2. Severe emphysema. Reviewed, dictated and finalized at location F. CHECKER IMPRESSION: 1. No suspicious correlate identified for the chest radiographic finding in que stion. 2. Severe emphysema.
== END 2022-09-10 08:55 | disposition home or self-care (01) ==
PROVIDERS: PCP Family Medicine; Visit Provider Physician Assistant Medical
DX: R91.1 Solitary pulmonary nodule (principal); J84.10 Pulmonary fibrosis, unspecified; J43.9 Emphysema, unspecified
CPT/HCPCS: 71260; Q9967

== ENCOUNTER 2022-11-11 12:25 | Outpatient (CLI) | payer MEDICARE, OTHER, SELFPAY ==
[2022-11-11 13:00] VITALS: PULSE 72; O2SAT 92
[2022-11-11 13:03] VITALS: PULSE 109; O2SAT 85
[2022-11-11 13:04] VITALS: O2SAT 86
[2022-11-11 13:05] VITALS: O2SAT 88
[2022-11-11 13:07] VITALS: PULSE 99; O2SAT 90
[2022-11-11 13:15] VITALS: PULSE 80; O2SAT 92
--- NOTE | 2022-11-11 14:13 | HOMEO2EVAL ---
Evaluation was performed at [facility] Home Oxygen Evaluation RC: Home Oxygen (O2) Evaluation Start: 11/11/22 14:11 Freq: Status: Active Protocol: RPE Activity Type Activity Date Activity User E-sign Co-sign Detail Recorded Client Recorded Date Recorded By Document 11/11/22 13:00 JOSE [email or web address] 11/11/22 14:13 JOSE Document 11/11/22 13:03 JOSE [email or web address] 11/11/22 14:13 JOSE Document 11/11/22 13:04 JOSE [email or web address] 11/11/22 14:13 JOSE Document 11/11/22 13:05 JOSE [email or web address] 11/11/22 14:13 JOSE Document 11/11/22 13:07 JOSE [email or web address] 11/11/22 14:13 JOSE Document 11/11/22 13:15 JOSE [email or web address] 11/11/22 14:13 JOSE 11/11/22 11/11/22 11/11/22 13:00 13:03 13:04 Home O2 Evaluation [Oxygen] -Test Phase Resting Exercise Exercise -Oxygen Delivery Room Air Room Air Nasal Cannula -Oxygen Flow Rate (L/min) 1 [Pulse Oximetry] -Pulse Oximetry (90-100 %) 92 85 L 86 L [Pulse Rate] -Pulse Rate (60-100 beats/min) 72 109 H [Comments] -Home Oxygen Evaluation Comments [Charges] -Treatment Charges O2 Evaluation - Outpatient 11/11/22 11/11/22 11/11/22 13:05 13:07 13:15 Home O2 Evaluation [Oxygen] -Test Phase Exercise Exercise Resting -Oxygen Delivery Nasal Cannula Nasal Cannula Room Air -Oxygen Flow Rate (L/min) 2 3 [Pulse Oximetry] -Pulse Oximetry (90-100 %) 88 L 90 92 [Pulse Rate] -Pulse Rate (60-100 beats/min) 99 80 [Comments] -Home Oxygen Evaluation Comments Pt requires 3 L home O2 with activity/ exertion [Charges] -Treatment Charges
--- NOTE | 2022-11-11 14:14 | PCRCNOTE ---
Home o2 eval faxed. Pt requires 3 L home o2 with activity. Currently has [employer] for home o2 at 3 L nocturnally. Pt requests a POC, as he is very active outside of house
--- NOTE | 2022-11-11 16:11 | WPDPFTINT ---
PFT Procedure Performed PFT Procedure Performed Spirometry with Pre/Post Bronchodilator Plethysmography (Lung Vol) Diffusing Cap (DLCO) Flow Vol Loop PFT Interpretation This is a pulmonary function test with pre and post-bronchodilator spirometry, plethysmography and diffusing capacity. The test was performed and results interpreted in accordance with the 2019 and 2005 ATS/ERS Task Force guidelines respectively using the Global Lung Function Initiative-2012 reference equations. Patient demonstrated good effort and cooperation. Reproducibility criteria were met. The quality of the pre bronchodilator spirometry maneuver was Grade B and post bronchodilator spirometry maneuver was Grade A. Findings: Spirometry: There is decreased maximal expiratory airflow at all lung volumes with concave expiratory flow tracing. the contour the inspiratory flow tracing is normal. The pre bronchodilator FVC is 3.56 L, 95% predicted. The pre bronchodilator FEV1 is 1.50 L, 54% predicted. The pre bronchodilator FEV1: FVC ratio is 42%. The post bronchodilator FVC is 3.58 L, representing a 1% increase. The post bronchodilator FEV1 is 1.40 L, representing a 7% decrease. The post bronchodilator FEV1: FVC ratio is 39%. Plethysmography: The total lung capacity is 7.52 L, 113% predicted. The functional residual capacity is 5.05 L, 142% predicted. The residual volume is 3.63 L, 146% predicted. Diffusion capacity: The diffusing capacity unadjusted for hemoglobin and carboxyhemoglobin is 7.1, 30% predicted. The diffusing capacity adjusted for alveolar volume is 1.57, 41% predicted. In comparison to previous pulmonary function testing on 01/13/2017 the post bronchodilator FVC is unchanged from 3.49 L to 3.58 L. The post bronchodilator FEV1 is unchanged from 1.54 L to 1.40 L. The total lung capacity is unchanged from 7.22 L to 7.52 L. The functional residual capacity is unchanged from 4.91 L to 5.05 L. The residual volume is unchanged from 4.05 L to 3.63 L. The diffusing capacity unadjusted for hemoglobin and carboxyhemoglobin is decreased from 10.4 to 7.1. The diffusing capacity adjusted for alveolar volume is decreased from 2.34 to 1.57 Impression: There is a moderately severe obstructive abnormality without significant improvement after inhaling a single dose of albuterol. The increase in residual volume is consistent with air trapping from an obstructive abnormality. Hyperinflation is present as demonstrated by the increase in functional residual capacity and is consistent with an obstructive abnormality. The diffusing capacity unadjusted for hemoglobin and carboxyhemoglobin is moderately decreased and normalizes when adjusted for alveolar volume. Impression: There is a moderately severe restrictive ventilatory abnormality. The spirometry is normal without evidence of an obstructive abnormality. There is no significant improvement after inhaling a single dose of albuterol. The diffusing capacity unadjusted for hemoglobin and carboxyhemoglobin is severely decreased and remains moderately decreased when adjusted for alveolar volume. In comparison to previous pulmonary function testing on 01/13/2017 there has been a greater than anticipated time dependent decrease in the DLCO and no significant change in the FVC, FEV1, total lung capacity, functional residual capacity and residual volume. Clinical correlation is recommended.
== END 2022-11-11 12:26 | disposition home or self-care (01) ==
LOC: ANHPFT 12:26
PROVIDERS: PCP Family Medicine; Visit Provider Internal Medicine Pulmonary Disease
DX: R06.00 Dyspnea, unspecified (principal); J40 Bronchitis, not specified as acute or chronic; Z72.0 Tobacco use; R94.2 Abnormal results of pulmonary function studies
CPT/HCPCS: 94060; 94618; 94726; 94729

== ENCOUNTER 2023-02-24 08:14 | Outpatient (CLI) | payer MEDICARE, OTHER, SELFPAY ==
[2023-02-24 08:56] LABS: Hematocrit 39.6 % (42.0-52.0); Hemoglobin 12.9 g/dL (14.0-18.0)
== END 2023-02-24 08:15 | disposition home or self-care (01) ==
PROVIDERS: Anesthesiology; PCP Family Medicine; Visit Provider Surgery
DX: K40.30 Unilateral inguinal hernia, with obstruction, without gangrene, not specified as recurrent (principal); D64.9 Anemia, unspecified; Z01.818 Encounter for other preprocedural examination
CPT/HCPCS: 36415; 85014; 85018; 86850; 86900; 86901

== ENCOUNTER 2023-03-23 07:53 | Outpatient (CLI) | payer MEDICARE, OTHER, SELFPAY | END 2023-03-23 07:54 | disposition home or self-care (01) | LOC: ANHSURGERY 08:00 | PROVIDERS: PCP Family Medicine; Visit Provider Surgery | DX: K40.30 Unilateral inguinal hernia, with obstruction, without gangrene, not specified as recurrent (principal); Z01.818 Encounter for other preprocedural examination | CPT/HCPCS: 36415; 86850; 86900; 86901 ==

== ENCOUNTER 2023-03-27 00:49 | Day surgery (SDC) | payer MEDICARE, OTHER, SELFPAY ==
[2023-02-21 14:33] VITALS: BMI 26.6
--- NOTE | 2023-02-21 14:53 | PC.NURSE ---
PRE-OP INSTRUCTIONS, PLEASE READ CAREFULLY Report to the Outpatient Waiting Room, entrance under the green pavilion located off [facility], at time _1200_ on date _03/02/23_. Planned Procedure Time: _2 PM_. Time changes happen often and if your time is changed the preop area will call you the afternoon before. - You and your visitor will be asked to self-screen and do not enter if you have any COVID symptoms. - A mask is optional within the hospital at this time. Patients may have clear liquids (water, carbonated beverages, clear teas, apple juice) until 3 hours prior to surgery (1100 AM) with a maximum of 20 ounces. - No food from midnight until time of surgery Take the following medications with a SIP of water the morning of surgery: _NONE_ DO NOT STOP ANY OF YOUR OTHER PRESCRIPTION MEDICATIONS PRIOR TO SURGERY ?EXCEPT THE FOLLOWING Medications to discontinue per ANESTHESIA - _MULTIVITAMIN 3 DAYS PRIOR TO SURGERY, Date to take last dose 02/26/23_ Please no make-up, nail uruguayan, hairspray, perfume, deodorant, or body powder the day of surgery. No jewelry (including any body piercings) or valuables the day of surgery, leave them at home. Please take a shower or bath the night before, or the morning of, surgery with an antibacterial soap. Wear comfortable, loose fitting clothing. - Jewelry must be removed prior to entering the operating room. Rings and piercings that are not removed may be cut off. - The hospital will not accept responsibility for valuables. - Please leave all valuables, including medications, at home the day of surgery. If you are going home after surgery, a licensed bulk driver must drive you home. - NO public transportation without another adult if you receive anesthesia. - We recommend that an adult stay with you for 24 hours following discharge. - We also recommend that you do not drive, make important decision, drink alcoholic beverages, or take any drugs that were not prescribed by your health care provider for at least 24 hours after your discharge time. Follow any additional instructions given to you from your surgeon. HIBICLENS SHOWER AM OF SURGERY If you or anyone in your household have experienced Covid symptoms in the past week, please notify your surgeon or the nurse liaison at the phone number below for possible testing. Telephone instructions given to _PATIENT_and asked if any additional questions and then verbalized understanding. Patient advised to call surgeon office or pre surgery nurse liaison [phone] if any additional questions.
[2023-03-20 13:39] VITALS: BMI 26.6
--- NOTE | 2023-03-20 13:44 | PC.NURSE ---
PRE-OP INSTRUCTIONS, PLEASE READ CAREFULLY Report to the Outpatient Waiting Room, entrance under the green pavilion located off [facility], at time _0930_ on date _03/27/23_. Planned Procedure Time: _1130_. Time changes happen often and if your time is changed the preop area will call you the afternoon before. - You and your visitor will be asked to self-screen and do not enter if you have any COVID symptoms. - A mask is optional within the hospital at this time. Patients may have clear liquids (water, carbonated beverages, clear teas, apple juice) until 3 hours prior to surgery (0830 AM) with a maximum of 20 ounces. - No food from midnight until time of surgery Take the following medications with a SIP of water the morning of surgery: _ANORO INHALER_ DO NOT STOP ANY OF YOUR OTHER PRESCRIPTION MEDICATIONS PRIOR TO SURGERY ?EXCEPT THE FOLLOWING Medications to discontinue per ANESTHESIA - _MULTIVITAMIN 3 DAYS PRIOR TO SURGERY, Date to take last dose 03/23/23_ Please no make-up, nail syriac, hairspray, perfume, deodorant, or body powder the day of surgery. No jewelry (including any body piercings) or valuables the day of surgery, leave them at home. Please take a shower or bath the night before, or the morning of, surgery with an antibacterial soap. Wear comfortable, loose fitting clothing. - Jewelry must be removed prior to entering the operating room. Rings and piercings that are not removed may be cut off. - The hospital will not accept responsibility for valuables. - Please leave all valuables, including medications, at home the day of surgery. If you are going home after surgery, a licensed emergency detail driver must drive you home. - NO public transportation without another adult if you receive anesthesia. - We recommend that an adult stay with you for 24 hours following discharge. - We also recommend that you do not drive, make important decision, drink alcoholic beverages, or take any drugs that were not prescribed by your health care provider for at least 24 hours after your discharge time. Follow any additional instructions given to you from your surgeon. If you or anyone in your household have experienced Covid symptoms in the past week, please notify your surgeon or the nurse liaison at the phone number below for possible testing. Telephone instructions given to _PATIENT__and asked if any additional questions and then verbalized understanding. Patient advised to call surgeon office or pre surgery nurse liaison [phone] if any additional questions.
[2023-03-27] VITALS (9 sets, daily range): BP systolic 115–170; BP diastolic 69–89; PULSE 56–76; RESP 10–20; TEMP 36.1–36.8; O2SAT 92–100; BMI 26.6
--- NOTE | 2023-03-27 08:57 | PM.IMHP ---
H&P: HPI History of Present Illness Date/Time: 03/27/23 08:57 Chief Complaint: incarcerated [facility] Narrative: Joe is a 77 y/o male who presents to the office at the request of Alfredito Dodson NP for evaluation of right inguinal hernia. He reports that he has a bulge in his right groin that he first noticed around about a year ago and that has gotten larger and is causing him significant discomfort. He noticed the area more when he has been more active. Review of Systems Review of Systems: All systems reviewed & are unremarkable except as noted in HPI and below PMFSH Past Medical History Medical History Benign prostatic hyperplasia Bladder cancer Status post TURBT in 2016. Chronic back pain For which he takes gabapentin. Chronic obstructive pulmonary disease Former smoker 1.5 packs per day for 40 years, quit in 2006. Gastroesophageal reflux disease Mixed hyperlipidemia Osteoarthritis Peptic ulcer (1995) Prostate cancer Status post radiation in 2016. Surgical History Surgical History History of arthroscopic knee surgery History of bladder surgery TURBT in 2016. History of laparotomy Related to what sounds like peptic or duodenal ulcer, and 1995. Family History Family History Mother History of blood clots Leukemia Sibling Prostate carcinoma Father No problems noted. Sibling No problems noted. Social History Social History Social History: The patient is and lives with his in [place]. 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 He designates his , Hannah, as his surrogate decision maker and he wishes to be a full code. He smokes 1.5 packs of cigarettes per day for about 45 years, and quit in 2006. He denies alcohol and drug abuse. Smoking packs per day: 1.5 Smoking cigarettes per day: 30.0 Years smoked: 45 Smoking pack-years: 67.50 Smoking status: Former smoker Tobacco type: cigarettes Second hand tobacco smoke exposure: No Smoking end date: 02/23/07 Alcohol intake: current Drinks per week: 5 Substance use: never Substance use type: does not use Lack of Transportation: No Lack of Food: Never True Current Housing: I Have Housing Concerned About Future Housing: No Difficulty Paying Gas/Electric Bills: No Difficulty Paying for Meds: No Currently Unemployed: No Education: High School Diploma/GED Difficulty w/ Childcare or Family Care: No Living arrangements: with family Occupation/Education: retired 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 Gender identity (if verbalized by the patient): Male Spiritual care concerns: No Agree to blood products: Yes Meds Home Medications and Allergies Home Medications Medication Instructions Recorded Confirmed Type calcium carbonate 600 mg-vitamin 1 tablet PO QAM 10/13/19 03/20/23 History D3 20 mcg (800 unit) chewable tablet (Caltrate 600 plus D) ferrous sulfate 325 mg (65 mg 325 mg PO DAILY 06/15/22 03/20/23 History iron) tablet (Iron (ferrous sulfate)) multivitamin with minerals-folic 80 tablet PO QAM 06/15/22 03/20/23 History acid 80 mcg chewable tablet cetirizine 10 mg tablet (Zyrtec) 10 mg PO DAILY PRN Congestion 09/20/22 03/20/23 History umeclidinium 62.5 mcg-vilanterol 1 inh inhalation DAILY #60 ea 10/19/22 03/20/23 Rx 25 mcg/actuation powdr for inhalation magnesium hydroxide 1,200 mg 1,200 mg PO DAILY PRN CONSTIPAION 02/17/23 03/20/23 History chewable tablet (Dulcolax (magnesium hydroxide)) ascorbic acid (vitamin C) 500 mg 500 mg PO DAILY 02/21/23 03/20/23 History tablet (Vitamin C) doxazosin 4 mg tablet 4 mg PO QPM #90 tabs 03/22/23 Rx famotidine 40 mg tablet 40 mg PO QHS PRN Aci
--- NOTE | 2023-03-27 08:59 | WPDHPUPDATE1 ---
History and Physical Update Update Date/Time: 03/27/23 08:59 History and Physical has been reviewed, including an updated exam of the patient. There are NO changes in the patient's condition. Risks, benefits, and alternatives have been discussed and questions answered. Patient agrees to proceed with procedure.
[2023-03-27] MEDS: LACTATED RINGERS 1,000 ML 30 ML IV CONT ×2 (10:15→13:28)
[2023-03-27] MEDS: ACETAMINOPHEN 500 MG TABLET 1000 MG PO (10:23)
[2023-03-27] MEDS: KETOROLAC 15 MG/ML VIAL (*BKC) IV PUSH (10:23)
--- NOTE | 2023-03-27 11:01 | WPDANESEPPF ---
Anes - Initial Pre Proc Eval Procedure: Operation Date: 03/27/23 11:30 Proposed Procedures p Robotic Assisted Right Inguinal Hernia Repair with Mesh - Debo Elizabeth MD Date/Time: 03/27/23 11:01 Surgeon: Debo Elizabeth MD Pre Op Diagnosis: incarcerated Right Inguinal Hernia Patient Data Age: 78 Gender: M Height: 1.68 m Weight: 74.7 kg Last Vital Signs Temp 96.9 F L 03/27/23 09:35 Pulse 76 03/27/23 09:35 Resp 16 03/27/23 09:35 BP 115/73 03/27/23 09:35 Pulse Ox 92 03/27/23 09:35 O2 Del Method Room Air 03/27/23 09:35 Allergies Allergy/AdvReac Type Severity Reaction Status Date / Time No Known Allergies Allergy Verified 03/27/23 10:28 Home Medications Medication Instructions Recorded Confirmed Type calcium carbonate 600 mg-vitamin 1 tablet PO QAM 10/13/19 03/20/23 History D3 20 mcg (800 unit) chewable tablet (Caltrate 600 plus D) ferrous sulfate 325 mg (65 mg 325 mg PO DAILY 06/15/22 03/27/23 History iron) tablet (Iron (ferrous sulfate)) multivitamin with minerals-folic 80 tablet PO QAM 06/15/22 03/27/23 History acid 80 mcg chewable tablet cetirizine 10 mg tablet (Zyrtec) 10 mg PO DAILY PRN Congestion 09/20/22 03/20/23 History umeclidinium 62.5 mcg-vilanterol 1 inh inhalation DAILY #60 ea 10/19/22 03/27/23 Rx 25 mcg/actuation powdr for inhalation magnesium hydroxide 1,200 mg 1,200 mg PO DAILY PRN CONSTIPAION 02/17/23 03/27/23 History chewable tablet (Dulcolax (magnesium hydroxide)) ascorbic acid (vitamin C) 500 mg 500 mg PO DAILY 02/21/23 03/27/23 History tablet (Vitamin C) doxazosin 4 mg tablet 4 mg PO QPM #90 tabs 03/22/23 Rx famotidine 40 mg tablet 40 mg PO QHS PRN Acid Reflux #90 03/26/23 Rx tabs Patient hx anesthesia problems: none Family hx anesthesia problems: none Results Review: All pre-operative results and documents have been reviewed as part of the pre-operative evaluation. [facility] Past Medical History Medical History Benign prostatic hyperplasia Bladder cancer Status post TURBT in 2016. Chronic back pain For which he takes gabapentin. Chronic obstructive pulmonary disease Former smoker 1.5 packs per day for 40 years, quit in 2006. Gastroesophageal reflux disease Mixed hyperlipidemia Osteoarthritis Peptic ulcer (1995) Prostate cancer Status post radiation in 2016. Surgical History Surgical History History of arthroscopic knee surgery History of bladder surgery TURBT in 2016. History of laparotomy Related to what sounds like peptic or duodenal ulcer, and 1995. Family History Family History Mother History of blood clots Leukemia Sibling Prostate carcinoma Father No problems noted. Sibling No problems noted. Social History Social History Social History: The patient is and lives with his in [place]. 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 He designates his , Hannah, as his surrogate decision maker and he wishes to be a full code. He smokes 1.5 packs of cigarettes per day for about 45 years, and quit in 2006. He denies alcohol and drug abuse. Smoking packs per day: 1.5 Smoking cigarettes per day: 30.0 Years smoked: 45 Smoking pack-years: 67.50 Smoking status: Former smoker Tobacco type: cigarettes Second hand tobacco smoke exposure: No Smoking end date: 02/23/07 Alcohol intake: current Drinks per week: 5 Substance use: never Substance use type: does not use Lack of Transportation: No Lack of Food: Never True Current Housing: I Have Housing Concerned About Future Housing: No Difficulty Paying Gas/Electric Bills: No Difficulty Paying for Meds: No Currently Unemployed: No Education:
[2023-03-27] MEDS: ceFAZolin 2 GM/D5W 50 ML 2 GM/50 ML BAG IVPB (11:04)
[2023-03-27] MEDS: BUPIVACAINE/EPINEPHRINE 0.5% 30 ML VIAL INFILTRATE (11:37)
--- NOTE | 2023-03-27 12:29 | W.PM.PROC2 ---
Procedure Note - Detailed Date of Procedure 03/27/23 Pre-op Diagnosis incarcerated, recurrent right inguinal hernia Post-op Diagnosis Same Procedure Performed robotic assisted incarcerated, recurrent right inguinal hernia repair with mesh Surgeon Debo Elizabeth MD Anesthesia General Indications 78-year-old male with progressively worsening right inguinal hernia over the last year Findings pantaloon right inguinal hernia, mesh plug in the direct space Description of Procedure Patient was brought into the operating room and placed in the supine position. After adequate induction of general anesthesia, the patient was prepped and draped in normal sterile fashion. A time-out was then done to verify the patient's identity, as well as the procedure being performed. Began by making a 8 mm incision in the supraumbilical region, a Veress needle was then placed into the peritoneal cavity. CO2 gas was then insufflated and after adequate pneumoperitoneum was achieved, the Veress needle was removed. I then placed an 8 mm trocar through this incision. I then placed the endoscope through this trocar site and under direct visualization placed 2 further 8 mm ports in the right and left mid abdomen. The [employer] robot was then docked to the 3 trocar sites. I then scrubbed out and went to the robotic console. Upon examining the pelvis, it was noted that the patient had a two separate defects in the right inguinal area. The left side was examined and no hernia defect was noted. I began by making a preperitoneal flap approximately 6 cm superior to the defects. This flap was carried medially past the umbilical ligaments in laterally to the transversalis. A mesh plug was noted in the direct space with a recurrent hernia medial to the plug. I was able to dissect out the hernia and mesh into the preperitoneal space. I then began dissection of my medial compartment taking this down to the pubic tubercle. I then began the lateral dissection taking this down to the transversalis fascia. Once these compartments were achieved, I began dissection around the cord structures. A moderate indirect hernia was noted at this point. Using careful dissection, was able to reduce indirect hernia sac off the cord structures. Once this was adequately done, I went ahead and placed a large piece of 3D Max mesh into the abdominal cavity. The mesh was carefully positioned, centering the center of the mesh over the both defects. Once this was done, was very satisfied with our repair. Using 3-0 Vicryl sutures, I tacked the mesh medially to Keo's ligament. Two lateral sutures were placed from the mesh to the transversalis fascia. I then closed the peritoneal flap with a running 2.0 V Lock suture. A small defect was noted in the peritoneum and this was closed with 3-0 Vicryl suture. The abdomen was then desufflated, and all ports were removed. All incisions were then closed with the 4.0 monocryl suture. Dermabond was placed on each wound. The patient tolerated the procedure well, was extubated in the operating room postoperatively, and will now be transferred to the recovery room in stable condition. Please note that given recurrent nature of the hernia including previously placed mesh the procedure was more difficult, requiring more extensive dissection and took approximately double the time of a normal inguinal hernia repair. Implants large 3DMax mesh Estimated Blood Loss 10 Drains No Packing No Pathology None sent Complications No immediate complications Condition Stable Disposition PACU [facility] Billing Surgery - Charge Forward: Surgery Billing
--- NOTE | 2023-03-27 13:23 | SUR.PHASEI ---
1320 PT PLACED ON NC 4L, PT WEARS O2 WHEN ASLEEP AT HOME, SAT ON R/A 88%
== END 2023-03-27 14:55 | disposition home or self-care (01) ==
PROVIDERS: PCP Family Medicine; Visit Provider Surgery
PROC: 8E0Y4CZ Robotic Assisted Procedure of Lower Extremity, Percutaneous Endoscopic Approach (ICD-10-PCS; CPT 49650; principal; 2023-03-27 11:30)
DX: K40.31 Unilateral inguinal hernia, with obstruction, without gangrene, recurrent (principal); D64.9 Anemia, unspecified; J44.9 Chronic obstructive pulmonary disease, unspecified; M54.9 Dorsalgia, unspecified; G89.29 Other chronic pain; Z87.891 Personal history of nicotine dependence; K21.9 Gastro-esophageal reflux disease without esophagitis; E78.2 Mixed hyperlipidemia; M19.90 Unspecified osteoarthritis, unspecified site; Z79.51 Long term (current) use of inhaled steroids
CPT/HCPCS: 49651; S2900; A9270; C1781; J0690; J1100; J1885; J2405; J2704; J3010; J7120